=== PATIENT | female | born 1975 | race Caucasian/White ===

== ENCOUNTER → 2017-12-15 | Outpatient (CLI) | payer OTHER ==
[~2017-12-15] MED LIST: ALPRAZOLAM0.5 M2 PO; AMBIEN 5 MG TABL5 M1 PO; AMITRIPTYLINE H25 M2 PO; AMITRIPTYLINE H75 M1 PO; AMITRIPTYLINE100 MG PO; ATIVAN1 MG PO; BENTYL 20 MG TA20 M1 PO; BOOST237 M1 PO; CARISOPRODOL 3350 MG PO; CHANTIX0.5 MG PO; CHANTIX1 MG PO; CLOMIPRAMINE HC50 M1 PO; CLONAZEPAM 0.50.5 M1 PO; CYMBALTA20 MG; ELIQUIS2.5 MG PO; EXCEDRIN CAPLE1 EACH PO; GOLYTELY4000 M1 PO; HYDROCODON-ACE1 EAC7 PO; HYDROCODONE-AP1 EAC6 PO; HYDROXYZINE HCL50 MG PO; IBUPROFEN 800800 M1 PO; IMITREX 50 MG T50 MG PO; KLONOPIN1 MG PO; LEVOTHYROXINE0.05 MG PO; LINZESS145 MCG PO; LIORESAL 10 MG10 MG PO; LYRICA 50 MG50 MG PO; MEDROLDOSEPACK PO; MIRALAX17 GM PO; MOBIC15 MG PO; NEURONTIN 300300 M1 PO; NICOTINE TRANSD21 M1 TRANSDERM; NORCO 5-325 TA1 EAC1 PO; NORCO 5-325 TA1 EACH PO; NORFLEX100 MG PO; OMEPRAZOLE20 M2 PO; ONDANSETRON HCL4 M2 PO; PERCOCET PO; PHENERGAN 25 MG25 M1 PO; PHENERGAN 25 MG25 MG PO; PHENERGAN12.5 M2 RECTAL; PRENATAL PO; PROMS25 WY RECTAL; PROTONIX40 M1 PO; REMERON15 MG PO; SYNTHROID50 MCG PO; TEGRETOL XR200 MG PO; TOPAMAX 25 MG T25 M1 PO; TOPROL XL25 MG PO; TORADOL 10 MG T10 MG PO; TRAMADOL 50 MG50 MG PO; TRAZODONE 150150 M1; TRAZODONE 150150 M1 PO; TRAZODONE HCL100 MG PO; VALACYCLOVIR1000 MG PO; VALIUM5 MG PO; VENLAFAXINE HCL75 M1 PO; VISTARIL 25 MG25 M1 PO; XANAX 0.5 MG0.5 MG PO; ZOFRAN ODT4 MG SUBLING
== END ==
LOC: M.MRI 08:39
DX: M47.894 Other spondylosis, thoracic region (principal); M50.221 Other cervical disc displacement at C4-C5 level; M50.223 Other cervical disc displacement at C6-C7 level

== ENCOUNTER → 2018-01-11 | Outpatient (CLI) | payer OTHER ==
--- NOTE | ~2018-01-11 | EKG ---
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
--- NOTE | 2018-01-19 14:40 | PAINCON ---
[address] [address] PAIN MANAGEMENT CONSULTATION Name: ALLENALTAF Sarah [facility] [id number] Admission: 01/11/18 Attend Phys: Ricco Farmer MD Discharge: Date of : 79 Report #: [id number] THIS REPORT FOR: //name// CC: Ricco Farmer NO PCP Workmen's Compensation DATE OF SERVICE: 01/11/2018 FOLLOWUP HISTORY: The patient is a 42-year-old female. 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 She hurt her back while lifting the patient. She was assisting the patient. The patient weighed over 400 pounds. After she assisted she notes some pain and discomfort in the low back area. She also has had pain and discomfort up in the neck and mid back area. She underwent trigger point injections at the last visit. She notes that the pain up in the trapezius muscles, has improved. Continues to have pain and discomfort in the rhomboid area in the middle portion of her back. She has not had any complications from the procedure. There were no problems with shortness of breath. At this juncture, she would like to proceed with another injection for the mid back pain. She feels that Meloxicam is helpful. She has not been taking Soma and feels that the hydrocodone 5/325 can be helpful. She rarely takes this medication. She notes that her pain becomes more problematic when she is using her arms. Driving is somewhat problematic. Activities where she lifts and bend can be problematic as well. She finds heat, cold, rest and medications are helpful. ALLERGIES: CONTRAST DYE CAUSES A RASH, COMPAZINE. PAIN CLINIC ASSESSMENT. 1. The patient is not being treated for osteoarthritis or rheumatoid arthritis. 2. Height 5 feet 7 inches, weight 152 pounds, BMI is 23. 3. Vital signs: Blood pressure 107/75, heart rate 94, respiratory rate 16, room air saturation is 99%, temperature 98.2. 4. Fall. The patient has not fallen in the last 3 months. She is not a fall risk. 5. Blood thinners. The patient is not on a blood thinner. 6. Hypertension. The patient is not being treated for hypertension. 7. Opioid greater than 6 weeks. The patient has not been on opioids for greater than 6 weeks, but she is taking [place] 5 mg p.r.n. 8. Functional assessment tool. 9. Risk assessment tool. Pain impact scores 37/70 in regards to general activity, mood, walking ability, work, relationships with others and sleep as well as enjoyment of life. 10. Recreational drug use. The patient denies. 11. Tobacco: The patient denies. 12. Alcohol: [place] [address] PAIN MANAGEMENT CONSULTATION Name: ALTAF VILLA Room: [facility]#: [id number] Admission: 01/11/18 Attend Phys: Ricco Farmer MD Discharge: Date of : 79 Report #: [id number] PHYSICAL EXAMINATION: GENERAL: The patient is a well-developed, well-nourished white female. She appears her stated age. She is alert and oriented x 3. Her affect seems appropriate. HEENT: Normocephalic, atraumatic. Extraocular muscles intact. Hearing is within normal limits. No nasal complaints. Buccal membranes are moist. NECK: Evidence of a well-healed scar in the neck area. No bruits are heard. Neck range of motion is within normal limits for flexion, extension, rotation, left and right as well as lateral bending. The patient does still have some soreness to palpation in the rhomboid areas of her left and right back area. Notes some discomfort in the area of the levator scapulae muscles. Muscle strength in the upper extremity is still judged to be 5/5 for the major muscle groups. Deep tendon reflexes +2 bilaterally, triceps and brachial radialis within normal limits. CHEST: Clear to auscultation. HEART: Regular rate. ABDOMEN: Nontender. IMPRESSION: 1. Neck and shoulder pain/myofascial. 2. History of tumor in the neck. 3. History of radiation to the neck. 4. Depression. 5. Anxiety. 6. Insomnia. 7. Cervical cancer. 8. History of migraine headaches. RECOMMENDATIONS: We discussed treatment options with the patient. She did note benefit from the trigger point injection at the last visit. They are less problematic. Still has some increased pain and discomfort with ranging of motion of her arms. Palpation in the area of the levator scapula as well as the rhomboid areas are both tender to palpation. We discussed the treatment option. The patient does continue to have trigger points. We again discussed the option with the patient. Possible complication of the procedure or infection, increased muscle soreness, no improvement in pain as well as pneumothorax. The patient felt that the pain relief that she had gleaned from the upper trapezius areas were beneficial and would like to proceed with trigger point injections to the rhomboid areas and the area of the levator scapulae on the left and on the right. PROCEDURE NOTE: The patient was placed in the sitting position. Her back was sterilely prepped with a chlorhexidine solution. Trigger points were noted in the rhomboid area on the left as well as the levator scapula. The levator scapular muscle was then palpated. Trigger point was noted. A total of 5 mL of [facility] [address] [place] [address] PAIN MANAGEMENT CONSULTATION Name: ALTAF VILLA Room: [facility]#: [id number] Admission: 01/11/18 Attend Phys: Ricco Farmer MD Discharge: Date of : 79 Report #: [id number] 0.5% bupivacaine and 20 mg triamcinolone was injected into this area. The rhomboid area was then palpated. A trigger point was noted. A total of 5 mL of 0.5% bupivacaine was injected. The right side was treated in the like fashion. The rhomboid area was palpated. The trigger point was noted. A 25-gauge needle was then advanced into the area. There were no bubbles on aspiration. A total of 10 mL of 0.5% bupivacaine was injected. The levator scapular area was then palpated. A total of 10 mL of 0.5% bupivacaine and 20 mg triamcinolone was injected into this area. The patient tolerated the procedure well. There were no complications. She remained in the pain clinic for an appropriate amount of time. Her pain score was decreased from 4 to 0 at the time of discharge. She will follow up in the future as needed. We would like to thank you for letting us participate in her care. We hope she continues to improve. <ELECTRONICALLY SIGNED> By: Ricco Farmer MD 01/19/18 1440 1330 2356N. Emmanuel Farmer MD /[facility]
== END | disposition home or self-care (01) ==
LOC: M.PC 02:46
DX: M79.1 Myalgia (principal); F32.9 Major depressive disorder, single episode, unspecified; F41.9 Anxiety disorder, unspecified; G43.909 Migraine, unspecified, not intractable, without status migrainosus; C53.9 Malignant neoplasm of cervix uteri, unspecified; I10 Essential (primary) hypertension; Z88.8 Allergy status to other drugs, medicaments and biological substances

== ENCOUNTER 2018-01-26 21:12 | Emergency (ER) | payer MEDICAID ==
[~2018-01-26] VITALS: Ht 170.2 cm; Wt 65.8 kg
[~2018-01-26 21:12] MED LIST changes: -AMITRIPTYLINE H25 M2 PO; -AMITRIPTYLINE H75 M1 PO; -AMITRIPTYLINE100 MG PO; -ATIVAN1 MG PO; -CHANTIX1 MG PO; -CYMBALTA20 MG; -ELIQUIS2.5 MG PO; -EXCEDRIN CAPLE1 EACH PO; -HYDROCODON-ACE1 EAC7 PO; -IMITREX 50 MG T50 MG PO; -NEURONTIN 300300 M1 PO; -PHENERGAN12.5 M2 RECTAL; -PRENATAL PO; -PROTONIX40 M1 PO; -SYNTHROID50 MCG PO; -TOPROL XL25 MG PO; -TRAZODONE 150150 M1; -VALACYCLOVIR1000 MG PO; -VENLAFAXINE HCL75 M1 PO; -XANAX 0.5 MG0.5 MG PO; -ZOFRAN ODT4 MG SUBLING
[2018-01-26] MEDS ORDERED: CYMBALTA20 MG (21:30)
[2018-01-26] MEDS ORDERED: TRAZODONE 150150 M1 (21:30)
[2018-01-26 21:37] LABS: ABSOLUTE BASOPHILS 0.1 thou/uL (0.0-0.2); ABSOLUTE EOSINOPHILS 0.1 thou/uL (0.0-0.7); ABSOLUTE LYMPHOCYTES 2.6 thou/uL (0.8-5.3); ABSOLUTE MONOCYTES 0.7 thou/uL (0.0-1.2); ABSOLUTE NEUTROPHILS 7.5 thou/uL (1.6-8.1); BASOPHILS 0.5 %; EOSINOPHILS 1.3 %; HEMATOCRIT 40.5 % (37.0-47.0); HEMOGLOBIN 13.7 gm/dL (12.0-15.0); LYMPHOCYTES 23.8 %; MCH 30.3 pg (26.0-34.0); MCHC 33.7 g/dL (28.0-37.0); MONOCYTES 6.5 %; MPV 6.8 fl. (7.2-11.1); NUCLEATED RBCS 0 /100WBC; PLATELET COUNT* 322 thou/uL (150-400); POLYS 67.9 %; RDW-CV 15.9 % (10.5-14.5)
[2018-01-26 21:41] LABS: URINE BILIRUBIN NEGATIVE (Negative); URINE BLOOD NEGATIVE (Negative); URINE CLARITY CLEAR; URINE COLOR YELLOW; URINE GLUCOSE-RANDOM NEGATIVE (Negative); URINE KETONES NEGATIVE (Negative); URINE LEUKOCYTES-REFLEX NEGATIVE (Negative); URINE NITRITE-REFLEX NEGATIVE (Negative); URINE PROTEIN NEGATIVE (Negative); URINE SPECIFIC GRAVITY >= 1.030 (1.005-1.030); URINE UROBILINOGEN 0.2 E.U./dl (0.2-1.0)
[2018-01-26 21:47] LABS: CALCIUM 8.7 mg/dL (8.5-10.1); CREATININE 0.9 mg/dL (0.6-1.3); POTASSIUM 3.4 mmol/L (3.5-5.1)
[2018-01-26 21:51] LABS: ALBUMIN 3.2 g/dL (3.4-5.0); TOTAL BILIRUBIN 0.1 mg/dL (<0.1-1.0); TOTAL PROTEIN 7.1 g/dL (6.4-8.2)
[2018-01-26] MEDS ORDERED: NORCO 5-325 TA1 EACH PO (22:52)
[2018-01-26] MEDS ORDERED: ZOFRAN ODT4 MG SUBLING (22:52)
[2018-01-26 22:59] VITALS: BP 116/73
[2018-02-01] MEDS ORDERED: AMITRIPTYLINE H75 M1 PO (10:46)
[2018-02-01] MEDS ORDERED: LIORESAL 10 MG10 MG PO (10:46)
[2018-02-01] MEDS ORDERED: MEDROLDOSEPACK PO (10:46)
[2018-02-01] MEDS ORDERED: NORCO 5-325 TA1 EACH PO (10:46)
[2018-02-10] MEDS ORDERED: NORCO 5-325 TA1 EACH PO (13:08)
[2018-03-17] MEDS ORDERED: AMITRIPTYLINE100 MG PO (13:28)
[2018-03-17] MEDS ORDERED: VALIUM5 MG PO (13:28)
[2018-03-17] MEDS ORDERED: LIORESAL 10 MG10 MG PO (13:28)
[2018-03-17] MEDS ORDERED: HYDROCODON-ACE1 EAC7 PO (13:29)
[2018-04-14] MEDS ORDERED: NORCO 5-325 TA1 EACH PO (08:41)
[2018-04-14] MEDS ORDERED: HYDROCODON-ACE1 EAC7 PO (08:41)
[2018-04-14] MEDS ORDERED: ZOFRAN ODT4 MG SUBLING (08:41)
[2018-04-14] MEDS ORDERED: VALIUM5 MG PO (08:41)
[2018-04-14] MEDS ORDERED: AMITRIPTYLINE100 MG PO ×3 (08:41→10:59)
[2018-04-14] MEDS ORDERED: LIORESAL 10 MG10 MG PO ×2 (08:41→10:56)
[2018-04-14] MEDS ORDERED: AMITRIPTYLINE H25 M2 PO (10:55)
[2018-04-15] MEDS ORDERED: SYNTHROID50 MCG PO (11:18)
[2018-04-15] MEDS ORDERED: PHENERGAN12.5 M2 RECTAL (11:19)
[2018-06-21] MEDS ORDERED: LIORESAL 10 MG10 MG PO (13:15)
[2018-06-21] MEDS ORDERED: AMITRIPTYLINE H25 M2 PO (13:15)
[2018-06-21] MEDS ORDERED: HYDROCODON-ACE1 EAC7 PO (13:15)
[2018-06-21] MEDS ORDERED: AMITRIPTYLINE100 MG PO (13:15)
[2018-06-21] MEDS ORDERED: NORCO 5-325 TA1 EACH PO (13:15)
[2018-07-19] MEDS ORDERED: NORCO 5-325 TA1 EACH PO (11:43)
[2018-07-19] MEDS ORDERED: AMITRIPTYLINE H25 M2 PO (11:43)
[2018-07-19] MEDS ORDERED: HYDROCODON-ACE1 EAC7 PO ×2 (11:43→11:46)
[2018-07-19] MEDS ORDERED: AMITRIPTYLINE100 MG PO (11:43)
[2018-07-19] MEDS ORDERED: LIORESAL 10 MG10 MG PO (11:43)
[2018-07-19] MEDS ORDERED: CHANTIX1 MG PO (13:37)
[2018-07-19] MEDS ORDERED: PROTONIX40 M1 PO (13:37)
== END 2018-01-26 22:59 | disposition home or self-care (01) ==
LOC: M.ERS 21:12
PROVIDERS: Family Medicine
DX: R10.9 Unspecified abdominal pain (principal); G43.909 Migraine, unspecified, not intractable, without status migrainosus; F17.210 Nicotine dependence, cigarettes, uncomplicated; Z85.41 Personal history of malignant neoplasm of cervix uteri; Z88.5 Allergy status to narcotic agent; Z88.8 Allergy status to other drugs, medicaments and biological substances

== ENCOUNTER → 2018-02-01 | Outpatient (CLI) | payer OTHER ==
[~2018-02-01] MED LIST changes: +AMITRIPTYLINE H25 M2 PO; +AMITRIPTYLINE H75 M1 PO; +AMITRIPTYLINE100 MG PO; +ATIVAN1 MG PO; +CHANTIX1 MG PO; +CYMBALTA20 MG; +ELIQUIS2.5 MG PO; +EXCEDRIN CAPLE1 EACH PO; +HYDROCODON-ACE1 EAC7 PO; +IMITREX 50 MG T50 MG PO; +NEURONTIN 300300 M1 PO; +PHENERGAN12.5 M2 RECTAL; +PRENATAL PO; +PROTONIX40 M1 PO; +SYNTHROID50 MCG PO; +TOPROL XL25 MG PO; +TRAZODONE 150150 M1; +VALACYCLOVIR1000 MG PO; +VENLAFAXINE HCL75 M1 PO; +XANAX 0.5 MG0.5 MG PO; +ZOFRAN ODT4 MG SUBLING
--- NOTE | 2018-02-22 08:16 | PAINCON ---
[address] [address] PAIN MANAGEMENT CONSULTATION Name: ALLENALTAF Sarah [id number] Admission: 02/01/18 Attend Phys: Ricco Farmer MD Discharge: Date of : 79 Report #: [id number] THIS REPORT FOR: //name// CC: Ricco Farmer NO PCP ____ ____ DATE OF SERVICE: 02/01/2018 FOLLOWUP HISTORY: The patient is a 42-year-old female who has been seen in the Pain Clinic. She suffers from myofascial pain. She works at [employer]. She was hurt while lifting a patient. States that once the patient who weight of about 400 pounds started to fall, she tried to assist her. After that, she noted worsening of pain and discomfort in her shoulders, neck as well as in the mid back area. She notes increased stiffness in her neck, arms mid back area. Sleep is problematic. She notes problems with activities of daily living. She notes decreased range of motion in the arms and shoulder area secondary to pain. States that she sometimes takes medications of hydrocodone to help, but feels that the benefit is somewhat limited. Driving can be problematic. Activities where she bends lifts are problematic as well. She has been off work because of the limited physical ability. She is noting some increased pain and discomfort. After the initial trigger points, she noticed her pain improved, but has noted an escalation in pain at this juncture. Pain has risen to the level of an 8/10. Notes increased muscle stiffness. Also, has had some problems with migraine headaches. ALLERGIES: CONTRAST DYE CAUSED A RASH. MEDICATIONS: Compazine renewal. Review of current pain medications, Baclofen 10 mg 1 p.o. t.i.d., [place] 5/325 one p.o. q. 6 hours p.r.n. pain, Meloxicam 15 mg daily, amitriptyline 75 mg at bedtime, Cymbalta 20 mg daily, ondansetron 4 mg q. 8 hours p.r.n. nausea and vomiting, trazodone 75 mg at bedtime. PAIN CLINIC ASSESSMENT: 1. The patient is not being treated for osteoarthritis or rheumatoid arthritis. 2. Height 5 feet 7 inches, weight 149 pounds, BMI is 23. 3. Vital signs: Blood pressure 133/76, pulse is 92, respiratory rate 16, room air saturation 99, temperature 98.1. 4. Fall. The patient has not fallen in the last 3 months. 5. Blood thinners. The patient is not on a blood thinner. 6. Hypertension. The patient is not being treated for hypertension. 7. Opioid greater than 6 weeks. The patient has not been taking opioids greater than 6 weeks. 8. Functional assessment tool. 9. Risk assessment tool. The patient's impact scores 37/70 showing some impact on activity, mood, walking ability, work, relationships with others, sleep and [facility] [address] [place] [address] PAIN MANAGEMENT CONSULTATION Name: ALTAF VILLA Room: [facility]#: [id number] Admission: 02/01/18 Attend Phys: Ricco Farmer MD Discharge: Date of : 79 Report #: [id number] enjoyment of life. 10. Recreational drug use. Denies use of recreational drugs. 11. Tobacco: The patient denies use of tobacco, alcohol. The patient denies use of alcoholic beverages. PHYSICAL EXAMINATION: GENERAL: The patient is a well-developed, well-nourished female. She appears her stated age. She is alert and oriented x 3. Her affect appears appropriate.' HEENT: Normocephalic and atraumatic. Extraocular eye muscles intact. Hearing is within normal limits. Sclerae is not icteric. Membranes are moist. NECK: Has a well-healed scar in the neck area. No bruits or adenopathy. Some limited range of motion secondary to increased pain and discomfort with left lateral bending, right lateral bending, left lateral rotation, cervical extension and cervical flexion. The patient has pain and discomfort in the area of the rhomboids on the left and right. Also, has pain in the area of the trapezius on the left and right side. Muscle strength in the upper extremity is judged to be 5/5 in the major muscle groups. Deep tendon reflexes +2 bilaterally for triceps, brachioradialis. CHEST: Clear to auscultation without rales or rhonchi. HEART: Regular rate, normal S1, S2. ABDOMEN: Nontender. Lower extremity muscle strength 5/5 with no complaints of neurological changes in the lower extremities. IMPRESSION: 1. Neck and shoulder/myofascial pain. 2. History of tumor in the neck. 3. History of radiation to the neck. 4. Depression. 5. Anxiety. 6. Insomnia. 7. Cervical cancer. 8. History of migraine headaches. RECOMMENDATIONS: We discussed treatment options with the patient. At this juncture, we will petition her insurance for a repeat of the trigger point injections. We will provide her with a Medrol Dosepak to take in the interim. We will also give her hydrocodone 5/325 to take p.r.n. for the problematic neck pain. A script for amitriptyline 75 mg has been written. The patient will also continue with baclofen as an option 1 p.o. t.i.d. to help with the muscle spasms. She will call us if she has any problems with her medications. She [facility] [address] [place] [address] PAIN MANAGEMENT CONSULTATION Name: ALTAF VILLA Room: [facility]#: [id number] Admission: 02/01/18 Attend Phys: Ricco Farmer MD Discharge: Date of : 79 Report #: [id number] will follow up in the near future, at which time we will consider trigger point injections to the affected areas. <ELECTRONICALLY SIGNED> By: Ricco Farmer MD 02/22/18 0816 1322 2044N. Emmanuel Farmer MD /[facility]
== END ==
LOC: M.PC 03:02
DX: M79.1 Myalgia (principal); F41.9 Anxiety disorder, unspecified; F32.9 Major depressive disorder, single episode, unspecified; G47.00 Insomnia, unspecified; G43.909 Migraine, unspecified, not intractable, without status migrainosus; Z92.3 Personal history of irradiation; C53.9 Malignant neoplasm of cervix uteri, unspecified; Z85.828 Personal history of other malignant neoplasm of skin

== ENCOUNTER → 2018-02-10 | Outpatient (CLI) | payer OTHER ==
--- NOTE | 2018-02-22 08:16 | PAINCON ---
[address] [address] PAIN MANAGEMENT CONSULTATION Name: ALTAF VILLA [id number] Admission: 02/10/18 Attend Phys: Ricco Farmer MD Discharge: Date of : 79 Report #: [id number] THIS REPORT FOR: //name// CC: Reese Farmer workmen's compensation DATE OF SERVICE: 02/10/2018 FOLLOWUP COMPLAINT: "Pain improved a little bit after the Medrol Dosepak, but still is painful and I am having pain down in my neck and shoulders. Left side is worse than the right. Pain is not as tight as it was prior to the Medrol Dosepak, but still some problem. I would like to return to work in the next week. Pain is rated as a 5/10. Had no new complications. No new trauma. Overall, things are getting a little bit better." FOLLOWUP HISTORY: The patient is a 42-year-old female who has been seen in the pain clinic. 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 While lifting a patient of approximately 400 pounds, the patient needed assistance. She helped with the patient. After lifting and assisting the patient. She noted pain and discomfort in her neck, low back and mid back areas. She has been having pain and discomfort with muscle spasms and weakness/increased pain with activities of daily living. Pain is so problematic that she has been unable to work for the last few weeks. She feels that things overall are improving. She would like to undergo a trigger point injection today. Her desire is to return to work next week. She feels that the meloxicam and other medications in conjunction with hydrocodone are helpful. She continues to have pain and discomfort in the left trapezius, right trapezius, and in the mid back on both sides. She had no complication from the trigger point injection in the past and would like to proceed with another injection to the affected sites today. ALLERGIES: 1. CONTRAST DYE causes a rash. 2. COMPAZINE. MEDICATIONS: They include: 1. Amitriptyline 75 mg 1 p.o. at bedtime. 2. Baclofen 10 mg 1 p.o. t.i.d. for muscle spasms. 3. Cymbalta 20 mg p.o. b.i.d. 4. Badger 5/325 one p.o. q. 4 hours p.r.n. pain. 5. Medrol Dosepak was taken leg at the last visit. 6. Ondansetron 4 mg p.r.n. for nausea. 7. Trazodone 150 mg daily. PAIN CLINIC ASSESSMENT: 1. The patient is not being treated for osteoarthritis [place] [address] PAIN MANAGEMENT CONSULTATION Name: ALTAF VILLA Room: [facility]#: [id number] Admission: 02/10/18 Attend Phys: Ricco Farmer MD Discharge: Date of : 79 Report #: [id number] 2. Fall: The patient has not fallen in the last 3 months. 3. Blood thinner. The patient is not on a blood thinner. 4. Hypertension. The patient is not being treated for hypertension. 5. Opioid use greater than 6 weeks. The patient has not been using opioids for greater than 6 weeks. 5. Functional assessment tool. 6. Risk assessment tool. The patient's impact scores is 37/70, this indicates some significant impairment in her activities of daily living, mood, walking ability, work, relationship with others as well as sleep and enjoyment of life. 7. Recreational drug use. The patient denies recreational drug use. 8. Tobacco: The patient denies use of tobacco. 9. Alcohol: The patient denies use of alcoholic beverages. PHYSICAL EXAMINATION: VITAL SIGNS: Height 5 feet 7 inches, weight 153 pounds, BMI is 24. Blood pressure 104/71, heart rate 100, respiratory rate 16, room air saturation 97%, temperature 98.1. GENERAL: The patient is a well-developed, well-nourished white female. She appears her stated age. She is alert and oriented x 3. Her affect appears appropriate. She does seem of somewhat sad. HEENT: Normocephalic, atraumatic. Extraocular eye muscles intact. Nonicteric sclerae. Hearing within normal limits. Mucous membranes are moist. NECK: Without JVD or adenopathy. The patient has evidence of a well-healed scar in the anterior portion of her neck. Cervical neck movement with flexion, extension and rotation. Left and lateral bending shows some decreased secondary to the patient complains of stiffness and some discomfort in the area. The patient has pain and discomfort to palpation of the rhomboids on the left and right, as well as in the trapezius muscles on the left and right. Rates her pain as about an 8 in these areas. Muscle strength in the upper extremity judged to be 5/5. The patient is moving slow and states that her muscles in these areas are sore. CHEST: Clear to auscultation without rales or cough. HEART: Regular rate and rhythm, normal S1, S2. ABDOMEN: Nontender. EXTREMITIES: Lower extremity muscle group strength 5/5 with no complaints of neurological change the muscle symmetry is present. IMPRESSION: 1. Neck and shoulder pain/myofascial pain. 2. History of tumor in the neck. 3. History of radiation to the neck. 4. Depression. 5. Anxiety. 6. Insomnia. 7. Cervical cancer. 8. [place] [address] PAIN MANAGEMENT CONSULTATION Name: ALLEN,ALTAF Sarah Room: [facility] Rojelio#: [id number] Admission: 02/10/18 Attend Phys: Ricco Farmer MD Discharge: Date of : 79 Report #: [id number] RECOMMENDATIONS: We discussed treatment options with the patient. At this juncture, the patient will undergo trigger point injections to the affected areas again. She continues to have pain and discomfort in the left and right trapezius area. There is pain in the area of the rhomboids on the posterior portion of her back near the scapula bilaterally. Movement in her arms can exacerbate the pain and discomfort in these areas. Overall, she feels that the pain is still problematic 8/10 and has improved in the past with trigger point injection and would like to proceed with an injection to the affected area. We discussed the treatment options. Risks and benefits of trigger point injections were again discussed. Possible complications of the procedure, which could include but are not limited to infection, increased muscle soreness, increased pain, no improvement in pain, pneumothorax with a chest tube placement being needed with hospitalization was discussed. The patient elects to proceed. PROCEDURE NOTE: The patient was placed in the sitting position. Her neck and shoulder areas were sterilely prepped with a chlorhexidine solution. The rhomboid area on the left and right were sterilely prepped. A 25-gauge needle was then advanced into the left trapezius area. After appropriate movement of needle. The trigger point was elicited. Total of 10 mL of 0.5% bupivacaine and 40 mg triamcinolone was injected. The patient tolerated the procedure well. The right trapezius area was then sterilely prepped and the trigger point was identified. Using a 25-gauge needle. A total of T10 mL of 0.5% bupivacaine was injected. A total of 40 mg Depo-Medrol plus with 10 mL of 0.5% bupivacaine was injected. The patient tolerated the procedure well. The third trigger point in the left rhomboid area was identified. A 25-gauge needle was then advanced into this area. A total of 5 mL of 0.5% bupivacaine and 20 mg Depo-Medrol was injected. The right rhomboid area was noted. Trigger point was identified. A 25-gauge needle was then advanced into the area of the trigger point. A total of 5 mL of 0.5% bupivacaine and 20 mg Depo-Medrol was injected. The patient tolerated the procedure well. There were no complications. A Band-Aid was placed in the appropriate places. The patient remained for an appropriate amount of time. She was provided a prescription of hydrocodone 5 mg tablets to take q 6-8 hours p.r.n. for pain. The patient states that she is going to try to go to work on Wednesday. Hopefully, she has successful time. She will lift and move in cognizant of her limitations. We would like to thank you for letting us participate in her care. We hope she continues to improve. <ELECTRONICALLY SIGNED> By: Ricco Farmer MD 02/22/18 0816 1335 2027N. Emmanuel Farmer MD /[facility]
== END | disposition home or self-care (01) ==
LOC: M.PC 01:29
DX: M79.1 Myalgia (principal); G43.909 Migraine, unspecified, not intractable, without status migrainosus; F32.9 Major depressive disorder, single episode, unspecified; F41.9 Anxiety disorder, unspecified; Z98.890 Other specified postprocedural states; Z91.041 Radiographic dye allergy status; Z88.8 Allergy status to other drugs, medicaments and biological substances; Z79.891 Long term (current) use of opiate analgesic; Z86.73 Personal history of transient ischemic attack (TIA), and cerebral infarction without residual deficits

== ENCOUNTER → 2018-03-17 | Outpatient (CLI) | payer OTHER ==
--- NOTE | 2018-04-13 13:42 | PAINCON ---
[address] [address] PAIN MANAGEMENT CONSULTATION Name: ALTAF VILLA [id number] Admission: 03/17/18 Attend Phys: Ricco Farmer MD Discharge: Date of : 79 Report #: [id number] THIS REPORT FOR: //name// CC: Reese Farmer Workmen[employer] Compensation DATE OF SERVICE: 03/17/2018 CHIEF COMPLAINT: "Pain has gotten worse. I am having trouble with my upper back and middle back area." FOLLOWUP HISTORY: The patient is a 42-year-old female who has been followed in the pain clinic. 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 She has had pain and discomfort, which has continued to be quite problematic. Notes that there is an increased muscle spasm in the upper portion of her back. There is pain and discomfort in the neck area. Difficulty with most activities of daily living. States that she has tried to use the exercise; that have been provided for her in the past. She still feels that her pain is still quite problematic. She continues with meloxicam and hydrocodone. It was felt that the trigger point injections have been beneficial, but then she continues to note a worsening of the pain after a few days postinjection. She states that most of her time or significant amount of time at this juncture is resting secondary to worsening of the pain with activity. Denies any new injury. Denies any problems with her medications. ALLERGIES: 1. CONTRAST DYE CAUSES A RASH. 2. COMPAZINE. MEDICATIONS: 1. Amitriptyline 75 mg at bedtime. 2. Baclofen 10 mg t.i.d., muscle spasm. 3. Cymbalta 20 mg b.i.d. 4. [place] 5/325 p.r.n. 5. Zofran for nausea. 5. Trazodone 150 mg at bedtime. PAIN CLINIC ASSESSMENT: 1. The patient is not being treated for rheumatoid arthritis or osteoarthritis. 2. Weight 153 pounds. BMI is 23. 3. Vital signs: Blood pressure 110/70, heart rate 99, respiratory rate is 18, room air saturation 99%, temperature 98.4. 4. Fall. The patient has not fallen in the last 3 months. 5. Blood thinner. The patient is not on a [place] [address] PAIN MANAGEMENT CONSULTATION Name: ALTAF VILLA Room: [facility]#: [id number] Admission: 03/17/18 Attend Phys: Ricco Farmer MD Discharge: Date of : 79 Report #: [id number] 6. Hypertension. The patient is not being treated for hypertension. 7. Opioid use greater than 6 weeks. The patient has not on any opioid regimen for greater than 6 weeks. 8. Functional assessment tool. 9. Risk assessment tool. Pain impact scores is 37/70, indicating moderate amount of problems with activities of daily living involving mood, walking, relationships with others, inability to sleep and having difficulty with enjoyment of life. 10. Recreational drug use. Denies use of recreational drugs. 11. Tobacco. Denies use of tobacco. 12. Alcohol. Denies use of alcoholic beverages. PHYSICAL EXAMINATION: GENERAL: The patient is a well-developed, well-nourished white female. She appears her stated age. She is alert and oriented x 3. She seems depressed. Speech is slow and seems somewhat depressed. HEENT: Normocephalic, atraumatic. Extraocular eye muscles intact. Hearing is within normal limits. Sclerae nonicteric. Mucous membranes are moist. NECK: Without bruits or adenopathy. Well healed scar in the neck. The patient has some pain and discomfort in the posterior neck area as well as some discomfort in the area of occipitals. She has pain and discomfort in the area of the rhomboids. Palpation of the left and right trapezius are problematic, left much more so than the right. Midline palpation from T1 through T7 is to be quite problematic and painful. Palpation in the paraspinous muscles at these areas, both increase the patient's pain and discomfort level. She vocalizes with palpation along the left lateral area. Pain and discomfort, soreness is noted in the levator scapular areas bilaterally, left more so than right. Major muscle group strength is judged to be 4+/5 secondary to the patient giving way because of pain and discomfort during the examination. CHEST: Clear to auscultation without rales or rhonchi. HEART: Regular rate. S1, S2. ABDOMEN: Nontender. MUSCULOSKELETAL: Without significant kyphosis, lordosis or scoliosis. Lower extremity muscle strength is 5/5 for the major muscle groups of the lower extremity without sensory changes. IMPRESSION: 1. Continued myofascial pain involving the neck, shoulders, and worsening of pain and discomfort in the mid thoracic area. 2. History of tumor in the neck. 3. History radiation to the neck. 4. Depression. 5. Anxiety. 6. Insomnia. 7. Cervical cancer. 8. History of migraine headaches. [address] [place] [address] PAIN MANAGEMENT CONSULTATION Name: ALTAF VILLA [facility]#: [id number] Admission: 03/17/18 Attend Phys: Ricco Farmer MD Discharge: Date of : 79 Report #: [id number] RECOMMENDATIONS: We discussed treatment options with the patient. They include continuation of her current medications. She feels that she is still sleeping poorly. Until that the Elavil is helpful. She is at 75 mg of amitriptyline. We will increase this to 100 mg at bedtime. The patient also is having some muscles spasms. We will provide the patient with Valium 5 mg p.o. b.i.d. to help with the muscle spasms. We will also continue with hydrocodone 5 mg 1 p.o. every 4-6 hours p.r.n. pain. We discussed stretching options for the patient. We have provided her exercise, which will probably be more beneficial. We went through these with her. She did note some improvement with that. The patient is walking in a very structured manner. She is not moving and portrays a significant amount of upper body rigidity. We explained to her that she should and needs to continue to walk in a more normal fashion to help decrease the muscle spasms. She has been given a script for diazepam 1 p.o. b.i.d., total of 10 tablets, hydrocodone 45 tablets 5/325, as well as increase in Elavil to 100 mg per day and a renewal also for baclofen 10 mg 1 or 2 tablets p.o. t.i.d. We would like to thank you for letting us participate in her care. We hope she continues to improve. <ELECTRONICALLY SIGNED> By: Ricco Farmer MD 04/13/18 1342 0827 0016N. Emmanuel Farmer MD /nt
== END ==
LOC: M.PC 04:04
DX: M79.1 Myalgia (principal); M54.2 Cervicalgia; M25.512 Pain in left shoulder; M25.511 Pain in right shoulder; C76.0 Malignant neoplasm of head, face and neck; F32.9 Major depressive disorder, single episode, unspecified; F41.9 Anxiety disorder, unspecified; G47.00 Insomnia, unspecified

== ENCOUNTER → 2018-04-14 | Outpatient (CLI) | payer OTHER ==
--- NOTE | 2018-04-20 13:42 | PAINCON ---
[address] [address] PAIN MANAGEMENT CONSULTATION Name: ALTAF VILLA [facility] [id number] Admission: 04/14/18 Attend Phys: Ricco Farmer MD Discharge: Date of : 79 Report #: [id number] THIS REPORT FOR: //name// CC: Reese Farmer DATE OF SERVICE: 04/14/2018 FOLLOWUP COMPLAINT: "Still having lots of soreness in my back. I have been stretching like you show me." FOLLOWUP HISTORY: The patient is a 42-year-old female who has been seen in the pain clinic because of chronic pain. 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 Continues to have pain and discomfort. States that she was helping to lift a 400-pound patient. At that point, the patient started to fall. Since that episode, she has had pain and discomfort in her neck, upper back, and lower back. She states that she continues to do stretching exercises. Notes that the trigger point injections in her shoulder and mid back have been helpful in the past. Still has some limited range of motion because of chronic pain and discomfort. Overall, she feels that things have improved since she first came to the pain clinic. She feels that medications are helpful. She has had some "shocking sensation down her feet with some tingling in the plantar portion of her foot, left and right. Notes that this has become more problematic. The duration of the pain and discomfort usually is about a minute and a half to 2 minutes. Has had no problems with the amitriptyline does find that this medication is helpful. Has had no problems with the hydrocodone with confusion. The patient did fine Valium, helpful with muscle spasms. Pain is about 50% relief with the current medical regimen. Has noted some benefit from heat as well as cold. Has taken Epsom salt baths. ALLERGIES: CONTRAST DYE CAUSES RASH, COMPAZINE. MEDICATIONS: 1. Amitriptyline 100 mg at bedtime. 2. Baclofen, total of 60 mg a day, 20 mg t.i.d. for muscle spasms. 3. Cymbalta 20 mg b.i.d. 4. [place] 5/325 one p.o. q. 6 hours p.r.n. pain. The patient does not take these medications daily, Zofran for nausea, trazodone 150 mg at bedtime. PAIN CLINIC ASSESSMENT: 1. The patient is not being treated for rheumatoid arthritis or osteoarthritis. 2. Height 5 feet 7 inches, weight 149 pounds, BMI is 23. 3. Vital Signs: Blood pressure 99/64, heart rate 107, respiratory rate 16, room air saturation 97%, temperature 98.6. [place] [address] PAIN MANAGEMENT CONSULTATION Name: ALTAF VILLA Room: [facility]#: [id number] Admission: 04/14/18 Attend Phys: Ricco Farmer MD Discharge: Date of : 79 Report #: [id number] 4. Pain intensity /10. 5. Fall risk. The patient has not fallen in the last 3 months. 6. Blood thinner. The patient is not on a blood thinning agent. 7. History of hypertension. The patient is not being treated for hypertension. 8. Opioid therapy greater than 6 weeks. The patient is receiving some hydrocodone medication from the pain clinic. 9. Risk assessment tool, low risk for opioid use. 10. Functional assessment tool. 11. Recreational drug use. The patient denies use of recreational drugs. 12. Tobacco use. The patient denies use of tobacco. 13. Alcohol: The patient denies use of alcoholic beverages. PHYSICAL EXAMINATION: GENERAL: The patient is a well-developed, well-nourished white female. Appears her stated age. She is alert and oriented x 3. She seems slightly less depressed than at the last visit. Speech is appropriate. HEENT: Normocephalic, atraumatic. Extraocular eye muscles intact. The patient is wearing glasses. Hearing is within normal limits. Sclerae nonicteric. Mucous membranes are moist. NECK: Without bruits, or adenopathy. Well-healed scar in the anterior portion of her neck. The patient has some pain and discomfort with left and right lateral bending, left and right lateral rotation, flexion and extension. These discomforts radiating to her neck. HEART: Regular rate. S1, S2. LUNGS: Clear to auscultation without rhonchi. ABDOMEN: Nontender. MUSCULOSKELETAL: Without significant scoliosis, kyphosis or lordosis. Upper extremity muscle strength is judged to be 4+5. The patient gives way secondary to muscle soreness, lower extremity muscle strength is judged to be 5/5 for the major muscle groups in the lower extremity. IMPRESSION: 1. Myofascial pain involving the neck, shoulders, and mid back/thoracic area. 2. 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 3. History of radiation to the neck. 4. Depression. 5. Anxiety. 6. Insomnia. 7. Cervical cancer history. 8. History of migraines. 9. GI complaints with some nausea. The patient will follow up with her GI doctor in the near future regarding nausea. RECOMMENDATIONS: We discussed treatment options with the patient. The patient would like to proceed with a trigger point injection to the 4 areas on her back, which are quite problematic. They include the left shoulder, right shoulder, [facility] [address] [facility] [place] [address] PAIN MANAGEMENT CONSULTATION Name: ALTAF VILLA Room: [facility]#: [id number] Admission: 04/14/18 Attend Phys: Ricco Farmer MD Discharge: Date of : 79 Report #: [id number] left scapula as well as the right scapular area. She feels that the hydrocodone is helpful. She does not take it every day. It was felt the Valium was significantly helpful in relaxation and decreasing muscle spasms. We explained that long-term use of benzodiazepines can be problematic, particularly in pain conditions. The patient has been trying to stretch. States that she is doing some of the exercises. She and I went over at the last visit, which include gentle stretching exercises. We explained the musculoskeletal/myofascial pain. Oftentimes results from areas of trigger points. Stretching is usually one of the best ways to decrease this problem. She feels that the Elavil is helpful. She is on 100 mg at bedtime. We will increase it to 125 mg. She will call us if she has any problems with that medication. Overall, she feels that it is helpful and would like to continue its use. She feels that baclofen continues to be helpful with spasms. We will rewrite for the baclofen medication. She will follow up in the future as needed. She will follow up with her primary physician in regards to return to work. We would recommend the patient can return to work as tolerated. A functional capacity exam might be helpful in determining her limitations. We would like to thank you for letting us participate in her care. We hope she continues to improve. Procedure Note: Patient was taken to the procedure room. She was helped on to the examination table. Four trigger point were identified. 1. Left trapezius, 2. right trapezius, 3. left levator scapulae, 4. right rhomboideus major. These muscles were sterile preped with chlorehexidine solution. Each was identified and a #25 needle advanced into the trigger point the patient confirmed reproduction of myofacial pain a total of 6 cc 0.25% bupivicane and 30mg triamcinolone was injected into each site. Patient tolerated procedure well. No complaints of SOB. Aspiration each site without air or heme. Bandaids placed. Pt remained in the pain clinic for and apporpriated time. She will followup prn. <ELECTRONICALLY SIGNED> By: Ricco Farmer MD 04/20/18 1342 1503 1854N. Emmanuel Farmer MD /HYACINTH
== END | disposition home or self-care (01) ==
LOC: M.PC 01:12
DX: M79.1 Myalgia (principal); F32.9 Major depressive disorder, single episode, unspecified; F41.9 Anxiety disorder, unspecified; G43.909 Migraine, unspecified, not intractable, without status migrainosus; Z87.19 Personal history of other diseases of the digestive system; Z85.41 Personal history of malignant neoplasm of cervix uteri; Z85.828 Personal history of other malignant neoplasm of skin; Z91.041 Radiographic dye allergy status; Z88.8 Allergy status to other drugs, medicaments and biological substances

== ENCOUNTER → 2018-06-21 | Outpatient (CLI) | payer OTHER ==
--- NOTE | 2018-06-29 16:41 | PAINCON ---
[address] [address] PAIN MANAGEMENT CONSULTATION Name: ALTAF VILLA [id number] Admission: 06/21/18 Attend Phys: Ricco Farmer MD Discharge: Date of : 79 Report #: [id number] THIS REPORT FOR: //name// CC: Reese Farmer DATE OF SERVICE: 06/21/2018 We discussed treatment options of trigger points with the patient. Risks and benefits of the procedure, which could include infection, increased muscle soreness, no improvement in pain, pneumothorax were discussed. The patient elects to proceed. PROCEDURE NOTE: The patient was taken to the examination room. She was placed perpendicular on the table. A chair was placed under her feet. Her left and right trapezius area were sterilely prepped with a Betadine solution with chlorhexidine solution. The area of the rhomboids on the left and right were sterilely prepped as well. The right rhomboid was identified. A 25-gauge needle was then advanced into the area of the trigger point. The patient states that this did reproduce her discomfort. A total of 5 mL of 0.5% bupivacaine and 20 mg triamcinolone was injected into this trigger point. A trigger point in the right trapezius area was then identified. A 25-gauge needle was then advanced to this area. A total of 5 mL of 0.5% bupivacaine and 20 mg triamcinolone was injected into that area. The left shoulder area and the trapezius was noted and trigger point was identified. A 25-gauge needle was then advanced into the area of the trapezius. The patient states that this reproduced her discomfort. A total of 5 mL of 0.5% bupivacaine and 20 mg triamcinolone was injected. The rhomboid area on the left was identified. Trigger point was noted. A 25-gauge needle was then advanced to the area of the trigger point. A total of 5 mL of 0.5% bupivacaine and 20 mg triamcinolone was injected. The patient tolerated the procedure well. There were no complications. There was no respiratory complaints at the time of discharge. We would like to thank you for letting us participate in her care. We hope she continues to improve. <ELECTRONICALLY SIGNED> By: Ricco Farmer MD 06/29/18 1641 1533 0140Ricco Farmer MD /[facility]
--- NOTE | 2018-06-29 16:41 | PAINCON ---
[address] [address] PAIN MANAGEMENT CONSULTATION Name: ALTAF VILLA Room: [facility] Rojelio#: [id number] Admission: 06/21/18 Attend Phys: Ricco Farmer MD Discharge: Date of : 79 Report #: [id number] THIS REPORT FOR: //name// CC: Reese Farmer DATE OF SERVICE: 06/21/2018 FOLLOWUP HISTORY: "I am still having some soreness in my neck and mid portion of my back". HISTORY: The patient is a 42-year-old female who has been seen in the pain clinic because of chronic pain in her back. As you may recall, she initially hurt her back while lifting a 400-pound patient. After the patient fell, she tried to stop the patient's motion. She noticed severe pain and discomfort in her neck, shoulders and has been treated with physical therapy as well as medications and time off from work. She rates her pain as a 7/10 at this juncture. She feels that the amitriptyline 125 mg at bedtime were helpful. She has found baclofen helpful. She used hydrocodone and notes that that medication is beneficial as well. She states that she has been worked up by her doctors. There is possibility of systemic lupus problems. She also has had some elevated levels of a test, which she states might indicate uterine cancer. Overall, she feels that things are going reasonably well. She would like to proceed with an injection at this juncture to try and help with her pain and discomfort. ALLERGIES: CONTRAST DYE CAUSES A RASH, COMPAZINE. MEDICATIONS: Amitriptyline 125 mg at bedtime, baclofen 60 mg, for muscle spasm, Cymbalta 20 mg b.i.d., baclofen 10 mg 2 tablets p.o. t.i.d., [place] 5/325 q. 6 hours p.r.n. pain. Pain intensity. PHYSICAL EXAMINATION: The patient rates her pain as a 7/10. PAIN CLINIC ASSESSMENT: 1. Osteoarthritis/rheumatoid arthritis. The patient states she has not been treated for rheumatoid arthritis or osteoarthritis. 2. Height 5 feet 7 inches, weight 159 pounds, BMI is 25. 3. Vital Signs: Blood pressure 103/70, heart rate 109, respiratory rate 18, room air saturation 96%, temperature 98.3. 4. Pain score 7/10. 5. Fall. The patient has not fallen in the last 3 months. 5. Blood thinner. The patient is not on a blood thinning medication. 6. Hypertension. The patient is not being treated for hypertension. 7. Opioid therapy greater than 6 weeks. The patient is not receiving opioids on a regular basis. 8. Risk assessment tool, [place] [address] PAIN MANAGEMENT CONSULTATION Name: ALTAF VILLA Room: [facility]#: [id number] Admission: 06/21/18 Attend Phys: Ricco Farmer MD Discharge: Date of : 79 Report #: [id number] 9. Functional assessment tool. 10. Recreational drug use. The patient denies use of recreational drugs. 11. Tobacco: The patient denies use of tobacco. 12. Alcohol: The patient denies use of alcoholic beverages. PHYSICAL EXAMINATION: GENERAL: The patient is a well-developed, well-nourished white female. Appears her stated age. She is alert and oriented x3. She seems slightly depressed. Speech is appropriate and fluent. HEENT: Normocephalic, atraumatic. Extraocular eye muscles intact. The patient is wearing glasses. Hearing is within normal limits. Sclerae nonicteric. Mucous membranes are moist. NECK: Without bruits or adenopathy. The patient has pain and discomfort on the left and right trapezius area. She has a well-healed scar in the anterior portion of her neck, status post surgery. HEART: Regular rate. S1, S2. LUNGS: Clear to auscultation without rhonchi. ABDOMEN: Nontender. MUSCULOSKELETAL: Without significant scoliosis, kyphosis or lordosis. The patient complains of pain and discomfort in the right patellar area. States that the left patellar area had been realigned a number of years ago. The pain was somewhat significant. She declined realignment on the right hand side and is now having pain and discomfort associated with that. The patient has petechiae in her left as well as in the right forearm. EXTREMITIES: Upper extremity muscle strength is judged to be 4+/5. The patient gives way secondary to muscle soreness. Has tenderness to palpation in the major muscle groups of the upper extremities. Muscle strength judged to be 5/5 for the lower muscle groups in the lower extremity. IMPRESSION: 1. Myofascial pain in the neck, shoulders, back and thoracic area. 2. Possible systemic lupus background, which is being evaluated by her physicians. 3. 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 4. History radiation to the neck. 5. Depression. 6. Anxiety. 7. Insomnia. 8. Cervical cancer history. 9. History of migraines. 10. GI complaints with history of nausea. RECOMMENDATIONS: We discussed treatment options with the patient. Risk and benefits of trigger point injections were again reviewed. The patient states that she is extremely sore. She has had limited range of motion. She would like to proceed with a trigger point injection to the affected areas today. She [facility] [address] [facility] [place] [address] PAIN MANAGEMENT CONSULTATION Name: ALTAF VILLA Room: [facility]#: [id number] Admission: 06/21/18 Attend Phys: Ricco Farmer MD Discharge: Date of : 79 Report #: [id number] has had no complications from its use. She would like to have her medications renewed. Feels that the amitriptyline 125 mg, baclofen, hydrocodone medications could be renewed. A script for these medications were dispensed. The patient will follow up in the near future. We would like to thank you for letting us participate in her care. <ELECTRONICALLY SIGNED> By: Ricco Farmer MD 06/29/18 1641 1530 0150N. Emmanuel Farmer MD /nt
== END | disposition home or self-care (01) ==
LOC: M.PC 04:49
DX: M79.1 Myalgia (principal); Z98.890 Other specified postprocedural states; F32.9 Major depressive disorder, single episode, unspecified; F41.9 Anxiety disorder, unspecified; G43.909 Migraine, unspecified, not intractable, without status migrainosus; Z79.899 Other long term (current) drug therapy; Z88.8 Allergy status to other drugs, medicaments and biological substances

== ENCOUNTER → 2018-07-19 | Outpatient (CLI) | payer OTHER ==
--- NOTE | 2018-08-15 10:00 | PAINCON ---
[address] [address] PAIN MANAGEMENT CONSULTATION Name: ALTAF VILLA [id number] Admission: 07/19/18 Attend Phys: Ricco Farmer MD Discharge: Date of : 79 Report #: [id number] THIS REPORT FOR: //name// CC: Reese Farmer DATE OF SERVICE: 07/19/2018 CHIEF COMPLAINT: "Pain in the shoulders and mid back, helped with trigger point injections. I would like to do it again." FOLLOWUP HISTORY: The patient is a 42-year-old female who has been followed in the Pain Clinic because of myofascial pain. As you recall, her initial injury was that of trying to keep a 400-pound patient from falling. Since that time, she has noted some continued pain and discomfort in her upper body. She has pain in her shoulders, has pain in her mid back as well. She has undergone physical therapy. She continues to stretch and do the exercises, which were prescribed. The patient finds that her medical management with amitriptyline and baclofen is helpful. She feels the hydrocodone has been beneficial as well. The patient has returned to work on a limited basis. She overall feels that her pain has improved with use of the trigger point injections. She is working 6 days, 6 hours at a time and minimized the amount of lifting that she is doing. She has pain in her left as well as her right neck. She feels that these areas are really tied around the shoulder area. She has noted some pain and discomfort in the mid thoracic area. Forward flexing and bending can increase pain and discomfort at about the level of her bra line. ALLERGIES: CONTRAST DYE CAUSED A RASH, COMPAZINE. MEDICATIONS: Amitriptyline 125 mg at bedtime, baclofen 10 mg t.i.d., hydrocodone 5/325s one p.o. b.i.d., Synthroid 50 mcg, Zofran 4 mg dissolve under tongue, Phenergan 12.5 mg suppository, Chantix, Protonix 40 mg daily. PAIN CLINIC ASSESSMENT: 1. Osteoarthritis/rheumatoid arthritis: The patient states that she is not being treated for rheumatoid arthritis or osteoarthritis. 2. Height 5 feet 4 inches, weight 156 pounds, BMI is 24. 3. Vital signs: Blood pressure 102/71, heart rate 76, respiratory rate 16, room air saturation 99%, temperature 98.2. 4. Pain intensity: 2-3/10. 5. Fall history: The patient has not fallen in the last 3 months. 6. Blood thinner: The patient is not on a blood thinning medication, but does have some ecchymosis/easy bruising on her arms. 7. Hypertension: The patient is not being treated for hypertension. 8. Opioid therapy greater than 6 weeks: The patient is not receiving opioid [place] [address] PAIN MANAGEMENT CONSULTATION Name: ALTAF VILLA Room: [facility]#: [id number] Admission: 07/19/18 Attend Phys: Ricco Farmer MD Discharge: Date of : 79 Report #: [id number] 9. Risk assessment tool: Low for use of opioid medication. 10. Functional assessment tool. 11. Recreational drug use: The patient denies use of recreational drugs. 12. Tobacco: The patient denies use of tobacco. 13. Alcohol: The patient denies use of alcoholic beverages. PHYSICAL EXAMINATION: GENERAL: The patient is a well-developed, well-nourished white female. She appears her stated age. She is alert and oriented x 3. She seems less depressed than she was at the last visit. Speech is fluent. HEENT: Normocephalic, atraumatic. Extraocular eye muscles intact. Sclerae are nonicteric. Mucous membranes are moist. Hearing is within normal limits. NECK: Without adenopathy or bruits. Reasonably good range of motion. The patient has pain and discomfort in the left and right trapezius area. There is a well-healed scar in the anterior portion of her neck status post surgery. HEART: Regular rate. S1, S2. LUNGS: Clear to auscultation, without rhonchi or rales. ABDOMEN: Nontender. MUSCULOSKELETAL: Without significant scoliosis, kyphosis, or lordosis. The patient has pain and discomfort in the left as well as in the right trapezius area. Palpation in these areas reproduces these discomforts. The patient has pain and discomfort in the midline area, near the spinous process. Palpation at approximately T7-T8 reproduces pain and discomfort. EXTREMITIES: Upper extremity muscle strength is judged to be 4+/5 for the major muscle groups. The patient gives way secondary to soreness. Lower extremity muscle strength is judged to be 5/5 for the major muscle groups in the lower extremities. IMPRESSION: 1. Myofascial pain in the neck, shoulders, back and thoracic area. 2. Possible systemic lupus background. The patient is being evaluated. 3. 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 4. History of radiation to the neck. 5. Depression. 6. Anxiety. 7. Insomnia. 8. Cervical cancer history. 9. History of migraine. 10. Gastrointestinal complaints with history of nausea. RECOMMENDATIONS: We discussed treatment options with the patient. At this juncture, we will proceed with a trigger point injection to the left and right shoulder area. Palpation in these areas reproduced her discomfort. She elects to proceed. We discussed possible complications of the procedure, which could include infection, worsening of pain, no improvement in pain, pneumothorax, and the [place] [address] PAIN MANAGEMENT CONSULTATION Name: ALTAF VILLA Room: [facility]#: [id number] Admission: 07/19/18 Attend Phys: Ricco Farmer MD Discharge: Date of : 79 Report #: [id number] PROCEDURE NOTE: The patient was placed in sitting position. Her back was sterilely prepped with a Betadine solution at the T7-T8 area. This area was tender to palpation. A 25-gauge needle was then advanced into the area. The patient states that this did reproduce her discomfort. A total of 10 mL of 0.5% bupivacaine and 40 mg triamcinolone was injected. The patient tolerated the procedure well. There were no complications. The left upper shoulder area was sterilely prepped with a Betadine solution. A 25-gauge needle was then advanced to the trigger point. A total of 8 mL of 0.5% bupivacaine was injected with 40 mg Depo-Medrol. The patient tolerated the procedure well. The right side was sterilely prepped with a Betadine solution. A 25-gauge needle was then advanced into this area. A total of 8 mL of 0.5% bupivacaine and 40 mg Depo-Medrol was injected. The patient tolerated the procedure well. There were no complications. She remained in the Pain Clinic for an appropriate amount of time. She will follow up in the future as needed. We would like to thank you for letting us participate in her care. We hope she continues to improve. <ELECTRONICALLY SIGNED> By: Ricco Farmer MD 08/15/18 1000 1225 [id number]. Emmanuel Farmer MD /nt
== END | disposition home or self-care (01) ==
LOC: M.PC 05:55
DX: M79.1 Myalgia (principal); G89.29 Other chronic pain; F32.9 Major depressive disorder, single episode, unspecified; F41.9 Anxiety disorder, unspecified; G43.909 Migraine, unspecified, not intractable, without status migrainosus; Z87.19 Personal history of other diseases of the digestive system; Z85.41 Personal history of malignant neoplasm of cervix uteri; Z86.018 Personal history of other benign neoplasm; Z79.899 Other long term (current) drug therapy; Z91.041 Radiographic dye allergy status; Z88.8 Allergy status to other drugs, medicaments and biological substances; Z79.891 Long term (current) use of opiate analgesic; Z86.73 Personal history of transient ischemic attack (TIA), and cerebral infarction without residual deficits

== ENCOUNTER 2018-07-29 11:11 | Emergency (ER) | payer MEDICAID ==
[~2018-07-29] VITALS: Ht 170.2 cm; Wt 68.0 kg
[~2018-07-29 11:11] MED LIST changes: -ATIVAN1 MG PO; -ELIQUIS2.5 MG PO; -EXCEDRIN CAPLE1 EACH PO; -IMITREX 50 MG T50 MG PO; -NEURONTIN 300300 M1 PO; -PRENATAL PO; -TOPROL XL25 MG PO; -VALACYCLOVIR1000 MG PO; -VENLAFAXINE HCL75 M1 PO; -XANAX 0.5 MG0.5 MG PO
[2018-07-29] MEDS ORDERED: TOPROL XL25 MG PO (11:49)
[2018-07-29 12:15] LABS: ABSOLUTE BASOPHILS 0.1 thou/uL (0.0-0.2); ABSOLUTE EOSINOPHILS 0.1 thou/uL (0.0-0.7); ABSOLUTE LYMPHOCYTES 2.6 thou/uL (0.8-5.3); ABSOLUTE MONOCYTES 0.8 thou/uL (0.0-1.2); ABSOLUTE NEUTROPHILS 8.5 thou/uL (1.6-8.1); BASOPHILS 0.7 %; EOSINOPHILS 0.5 %; HEMATOCRIT 39.3 % (37.0-47.0); LYMPHOCYTES 21.4 %; MCH 30.5 pg (26.0-34.0); MCHC 33.1 g/dL (28.0-37.0); MCV 92.1 fL (80.0-100.0); MONOCYTES 6.5 %; MPV 7.2 fl. (7.2-11.1); NUCLEATED RBCS 0 /100WBC; PLATELET COUNT* 323 thou/uL (150-400); POLYS 70.9 %; RBC 4.27 mil/uL (4.20-5.00); RDW-CV 15.1 % (10.5-14.5)
[2018-07-29 12:24] LABS: ANION GAP 11 mmol/L (7-16); BUN 12 mg/dL (7-18); CALCIUM 8.6 mg/dL (8.5-10.1); CHLORIDE 101 mmol/L (98-107); CO2 26 mmol/L (21-32); CREATININE 0.9 mg/dL (0.6-1.3); GLUCOSE 94 mg/dL (70-99); POTASSIUM 3.5 mmol/L (3.5-5.1); SODIUM 138 mmol/L (136-145)
[2018-07-29 12:27] LABS: APTT 24.4 Seconds (25.0-31.3); PROTIME 9.9 Seconds (9.20-11.50)
[2018-07-29 12:39] LABS: ALBUMIN 3.5 g/dL (3.4-5.0); ALKALINE PHOSPHATASE 82 U/L (46-116); LIPASE 170 U/L (73-393); MAGNESIUM 2.2 mg/dL (1.8-2.4); NT-PRO BRAIN NAT PEPTIDE 82 pg/mL (<300); SGOT 12 U/L (15-37); SGPT 29 U/L (30-65); TOTAL BILIRUBIN 0.2 mg/dL (<0.1-1.0); TOTAL PROTEIN 7.5 g/dL (6.4-8.2); TROPONIN-I LEVEL <0.06 ng/mL (<0.06)
[2018-07-29] MEDS ORDERED: ATIVAN1 MG PO (14:29)
--- NOTE | 2018-07-29 14:38 | EKG ---
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
[2018-07-29 14:44] VITALS: BP 112/68
--- NOTE | 2018-07-30 15:05 | EKG ---
[place] [address] ELECTROCARDIOGRAM REPORT Name: ALTAF VILLA Room: [facility]#: [id number] Admission: 07/29/18 Attend Phys: Discharge: 07/29/18 Date of : 79 Report #: [id number] THIS REPORT FOR: //name// [facility] ED Test Date: 2018-07-29 Test Time: 14:05:11 Pat Name: ALTAF VILLA Department: Room: Gender: F [place] Room Worker: JUAN A : 1975 Requested By: Declan Camara Order Number: [id number] MD: Kyrie Araujo Measurements Intervals [place] Rate: 71 P: 32 AR: 134 QRS: 41 QRSD: 86 T: 41 QT: 406 QTc: 442 Interpretive Statements Sinus rhythm Baseline wander in lead(s) V4,V5,V6 Compared to ECG 07/29/2018 11:16:51 Sinus tachycardia no longer present Electronically Signed On 07-30-2018 15:04:56 CDT by Kyrie Araujo [email or web address] <ELECTRONICALLY SIGNED> By: Denisha Araujo MD, [facility] 07/30/18 1504 1405 1405 Denisha Araujo MD, [facility] /EPI
== END 2018-07-29 14:45 | disposition home or self-care (01) ==
LOC: M.ERS 11:11
PROVIDERS: Emergency Medicine Emergency Medical Services
DX: R07.89 Other chest pain (principal); R00.2 Palpitations; F41.9 Anxiety disorder, unspecified; F32.9 Major depressive disorder, single episode, unspecified; G47.00 Insomnia, unspecified; G43.909 Migraine, unspecified, not intractable, without status migrainosus; Z85.41 Personal history of malignant neoplasm of cervix uteri; Z85.89 Personal history of malignant neoplasm of other organs and systems; F17.210 Nicotine dependence, cigarettes, uncomplicated; Z88.5 Allergy status to narcotic agent; Z91.041 Radiographic dye allergy status; Z88.8 Allergy status to other drugs, medicaments and biological substances

== ENCOUNTER 2018-08-09 18:54 | Inpatient (IN) | payer MEDICAID ==
[~2018-08-09] VITALS: Ht 157.5 cm; Wt 75.7 kg
[~2018-08-09 18:54] MED LIST changes: +ATIVAN1 MG PO; +TOPROL XL25 MG PO
[2018-08-09 18:58] VITALS: BP 132/89
[2018-08-09 19:37] LABS: URINE BILIRUBIN NEGATIVE (Negative); URINE BLOOD NEGATIVE (Negative); URINE CLARITY CLEAR; URINE COLOR YELLOW; URINE GLUCOSE-RANDOM NEGATIVE (Negative); URINE KETONES NEGATIVE (Negative); URINE LEUKOCYTES-REFLEX NEGATIVE (Negative); URINE NITRITE-REFLEX NEGATIVE (Negative); URINE PROTEIN NEGATIVE (Negative); URINE UROBILINOGEN 0.2 E.U./dl (0.2-1.0)
[2018-08-09 19:40] LABS: ABSOLUTE BASOPHILS 0.1 thou/uL (0.0-0.2); ABSOLUTE EOSINOPHILS 0.2 thou/uL (0.0-0.7); ABSOLUTE LYMPHOCYTES 3.1 thou/uL (0.8-5.3); ABSOLUTE MONOCYTES 0.7 thou/uL (0.0-1.2); ABSOLUTE NEUTROPHILS 6.2 thou/uL (1.6-8.1); BASOPHILS 0.8 %; EOSINOPHILS 1.6 %; HEMATOCRIT 38.4 % (37.0-47.0); HEMOGLOBIN 12.9 gm/dL (12.0-15.0); LYMPHOCYTES 30.3 %; MCH 31.3 pg (26.0-34.0); MCHC 33.5 g/dL (28.0-37.0); MCV 93.6 fL (80.0-100.0); MONOCYTES 6.5 %; MPV 7.5 fl. (7.2-11.1); NUCLEATED RBCS 0 /100WBC; PLATELET COUNT* 323 thou/uL (150-400); POLYS 60.8 %; RBC 4.11 mil/uL (4.20-5.00); RDW-CV 15.8 % (10.5-14.5); WBC 10.2 thou/uL (4.0-11.0)
[2018-08-09 19:46] LABS: AMP/METHAMP Negative (Negative); BARBITURATES Negative (Negative); BENZODIAZEPINES POSITIVE (Negative); COCAINE Negative (Negative); METHADONE Negative (Negative); OPIATES POSITIVE (Negative); PCP Negative (Negative); THC Negative (Negative)
[2018-08-09 19:54] LABS: ANION GAP 11 mmol/L (7-16); BUN 5 mg/dL (7-18); CALCIUM 8.9 mg/dL (8.5-10.1); CHLORIDE 99 mmol/L (98-107); CO2 26 mmol/L (21-32); CREATININE 0.9 mg/dL (0.6-1.3); GLUCOSE 125 mg/dL (70-99); POTASSIUM 3.5 mmol/L (3.5-5.1); SODIUM 136 mmol/L (136-145)
[2018-08-09 19:58] LABS: BE -3.9 mmol/L (-2 to +3); HCO3 20.7 mmol/L (22.0-26.0); pH 7.378 (7.340-7.450)
[2018-08-09 19:59] LABS: SALICYLATE 3.9 mg/dL (2.8-20.0)
[2018-08-09 20:01] LABS: PO2 444.4 mmHg (75.0-100.0)
[2018-08-09 20:02] LABS: ALBUMIN 3.3 g/dL (3.4-5.0); ALKALINE PHOSPHATASE 95 U/L (46-116); SGOT 17 U/L (15-37); SGPT 32 U/L (30-65); TOTAL BILIRUBIN 0.1 mg/dL (<0.1-1.0); TOTAL PROTEIN 7.4 g/dL (6.4-8.2); TROPONIN-I LEVEL <0.06 ng/mL (<0.06)
[2018-08-09 20:07] LABS: ACETAMINOPHEN < 2 ug/mL (10-30); ALCOHOL < 10 mg/dL (<10)
[2018-08-09 21:17] VITALS: BP 146/86
[2018-08-09 21:23] VITALS: BP 143/94
[2018-08-09 22:00] VITALS: BP 137/85
[2018-08-09 23:00] VITALS: BP 138/85
[2018-08-10] VITALS (17 sets, daily range): BP systolic 98–139; BP diastolic 61–86
[2018-08-10 06:14] LABS: BE 2.9 mmol/L (-2 to +3); HCO3 25.1 mmol/L (22.0-26.0); PCO2 29.7 mmHg (35.0-45.0); PO2 111.6 mmHg (75.0-100.0); pH 7.544 (7.340-7.450)
--- NOTE | 2018-08-10 08:16 | NUR ---
Pt arrived to ICU at 2114 from ED. Pt intubated and appearing sedated, unresponsive. VSS. Reviewed pt's history with , though he states his history with her goes back only 2 years. States he will bring pt's medications for reconciliation in the morning. Pt's reports he filled out affidavit to hold pt until "things are resolved." Propofol infusing at 30 mcg/kg/min. [place] draining dark ariel urine. Pt opens eyes spontaneously, but does not follow commands. Bilat soft wrist restraints in place. Will continue to monitor.
[2018-08-10] MEDS ORDERED: VALACYCLOVIR1000 MG PO (08:32)
[2018-08-10] MEDS ORDERED: XANAX 0.5 MG0.5 MG PO (08:34)
[2018-08-10] MEDS ORDERED: IMITREX 50 MG T50 MG PO (08:37)
[2018-08-10] MEDS ORDERED: BENTYL 20 MG TA20 M1 PO (08:42)
[2018-08-10] MEDS ORDERED: VENLAFAXINE HCL75 M1 PO (08:43)
--- NOTE | 2018-08-10 09:00 | NUR ---
RN RESUMED CARE OF PT THIS AM. PT SEDATED AND VENTILATED ON PROPOFOL. PT VS STABLE. AFEBRILE. PT RESPONSIVE TO STIMULI, NOT FOLLOWING COMMANDS. FAMILY AT BEDSIDE. DENIES FURTHER QUESTIONS/CONCERNS AT THIS TIME.
--- NOTE | 2018-08-10 10:05 | EKG ---
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1975 Requested By: Robert Shetty Order Number: [id number] MD: Nicko Castillo Measurements Intervals [place] Rate: 90 P: 54 [place]: 151 QRS: 57 QRSD: 89 T: 58 QT: 378 QTc: 463 Interpretive Statements Sinus rhythm Abnormal R-wave progression, early transition Compared to ECG 07/29/2018 14:05:11 No significant changes Electronically Signed On 08-10-2018 10:05:40 CDT by Nicko Castillo [email or web address] <ELECTRONICALLY SIGNED> By: Nicko Castillo MD, [facility] 08/10/18 1005 35 35 Nicko Castillo MD, [facility] /EPI
--- NOTE | 2018-08-10 11:30 | NUR ---
SPOKE BRIEFLY WITH AT BEDSIDE. HE UNDERSTANDS PLAN OF CARE IS TO SEE IF SHE CAN BE EXTUBATED, SHE WILL NEED TELEPSYCH EVAL ONCE AWAKE AND ALERT. CASE MGT TO CONTINUE TO FOLLOW.
--- NOTE | 2018-08-10 16:57 | NUR ---
PT SLOWLY PROGRESSING TOWARDS GOALS THIS SHIFT. EXTUBATED AROUND 1300, REMAINS ON ROOM AIR SINCE EXTUBATION. AFTER EXTUBATION PT AGITATED AND IMPULSIVE, SECURITY CALLED, PT REMAINED IN BILATERAL SOFT WRIST RESTRAINTS UNTIL AROUND 1630 THIS EVENING WHEN SHE BECOME MORE CALM AND LESS IMPULSIVE. CHEEK REMOVED PT CONTINUED TO TRY TO PULL ON CATHETER AND STATED THAT IT WAS HURTING AND "GET IT OUT". SINCE REMOVAL OF CHEEK PT CALM AND NO LONGER C/O PAIN. ATIVAN AND FENTANYL ADMINISTERED PRN FOR PAIN/AGITATION. FAMILY AT BEDSIDE. FAMILY REQUESTS THAT PT SISTER, MOTHER, AND OLDEST DAUGHTER NOT BE ALLOWED TO VISIT PT OR RECEIVE ANY INFORMATION.
--- NOTE | 2018-08-10 20:43 | NUR ---
ASSESSMENT COMPLETED, SEE CHARTING. PT. WAS UNABLE TO RESPOND TO THIS RN VERBALLY, CONTINUED TO MOAN, ONLY WORDS SHE STATED WAS "OUCH" AND "OWW". SITTER AT BEDSIDE, RIGHT EJ 18# PLACED. FENTANYL GIVEN PER PAIN, O2 SAT DROPPED AFTER GIVEN, 4L O2 PLACED
[2018-08-11] VITALS (16 sets, daily range): BP systolic 85–111; BP diastolic 50–74
--- NOTE | 2018-08-11 02:35 | NUR ---
PT. MORE ALERT, TEARFUL. STATING PAIN IS 10/1O IN HEAD, THROBBING. FENTANYL GIVEN PER PRN ORDER. REQUESTING TO TALK TO , PHONE PROVIDED TO CALL WITH SITTER AND NURSE AT BEDSIDE. ALLOWED TO ENTER PT'S ROOM AT THIS TIME FOR A TOTAL OF 30 MINUTES ONLY. PT. VOICES UNDERSTANDING. ATIVAN GIVEN TO CALM NERVES
--- NOTE | 2018-08-11 05:52 | NUR ---
PT. PROGRESSING TOWARDS GOALS. SAFETY MAINTAINED, SITTER AT BEDSIDE THROUGHOUT THE SHIFT. PT. HAS NOT URINATED THIS SHIFT, BLADDER SCAN DONE, 335. WILL CONTINUE TO MONITOR.
--- NOTE | 2018-08-11 07:30 | NUR ---
ASSUME CARE OF PT. SITTER AT FOR SAFETY. PT ASKING OR PAIN MEDS FOR HEADACHE AND SORE THROAT. PT ANXIOUS. STATES SHE IS CONCERNED ABOUT OTHER EMPLOYEES FINDING OUT HER HEALTH INFORMATION. REINFORCED HIPPAA TO PT. PT MADE CONFIDENTIAL PER REGISTRATION AND PT REQUEST
--- NOTE | 2018-08-11 10:00 | NUR ---
PT REQUESTING IV PAIN AND ANXIETY MEDS. INSTRUCTED PT THAT MEDS CANNOT BE GIVEN AT THE SAME TIME BUT WILL GIVE ORDERED
[2018-08-11] MEDS ORDERED: ELIQUIS2.5 MG PO (12:41)
--- NOTE | 2018-08-11 13:00 | NUR ---
PT TAKEN TO ROOM 116 VIA WC. REPORT GIVEN TO BETH. GOMEZ REMAINS AT BS FOR SAFETY
--- NOTE | 2018-08-11 13:06 | EKG ---
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
--- NOTE | 2018-08-11 18:13 | NUR ---
174-DR RON STATED PT WILL REQUIRE AN IN PATIENT PSYCH HOSPITALIZATION ADMISSION AND THAT ALL NARCOTICS AND BENZO'S SHOULD BE REMOVED FROM PT MED LIST. DR PEREZ UPDATED REGARDING THIS RECOMMENDATION AND HE GAVE A TELEPHONE ORDER TO REMOVE ALL NARCOTICS AND BENZO'S FROM PT MEDICATION LIST AT THIS TIME. DR PEREZ STATED THAT IF THE PT GETS OUT OF HAND THEN SECURITY SHOULD BE NOTIFIED. 1800-MEDICATIONS HAVE BEEN DISCONTINUED FROM PT MEDICATION LIST AND PT HAS BEEN UPDATED REGARDING THIS CHANGE AFTER PT REQUESTED PAIN MEDICATION AND ATIVAN.
--- NOTE | 2018-08-11 18:17 | NUR ---
173-PT TEARFUL AFTER PSYCH CONSULT STATING THAT "I WISH I WOULD HAVE JUST ". PT ASKING TO LEAVE HOSPITAL AND NOT GO TO IN PATIENT PSYCH, PT EDUCATED THAT IT IS PROTOCOL FOR ALL PATIENTS THAT ATTEMPT TO TAKE THEIR LIFE TO BE EVALUATED BY IN PATIENT PSYCH. 1744-PT CALLED OUT FOR ATIVAN AND PAIN MEDICATIONS AND IS REPORTING HYPERVENTILATING. PT HAS 1:1 AT BEDSIDE AND PT WAS UPDATED THAT SHE DOES NOT HAVE ANY PAIN MEDICATIONS AND THE ATIVAN HAS BEEN REMOVED FROM HER MEDICATION LIST WELL. DANIEL BUSTAMANTE WENT INTO THE PT ROOM AND EDUCATED THE PT REGARDING PLAN OF CARE AND THE NEED TO KEEP PT SAFE AT THIS TIME.
--- NOTE | 2018-08-11 22:15 | NUR ---
AT APPROXIMATELY 2030 PATIENT'S BLOOD PRESSURE WAS LOW AND PULSE TACHY. PATIENT HAD C/O CHEST PAIN. NOTIFIED. EKG ORDERED. NEW ORDERS GIVEN. PATIENT IS STABLE AT THIS TIME BUT IS VERY ANXIOUS. SITTER IN ROOM WITH PATIENT. WILL CONTINUE WITH PLAN OF CARE AND NURSING TO MONITOR.
--- NOTE | 2018-08-12 06:18 | NUR ---
PATIENT HAS SLEPT WELL THROUGHOUT THE NIGHT. PAIN CONTROLLED. MEDICATIONS GIVEN ORDERED AND CHARTED. VSS ON RA, ALTHOUGH BP SLIGHTLY LOW AND PULSE TACHYCARDIC. EJ TO RIGHT NECK WITH IV FLUIDS INFUSING TKO. ONE ON ONE WITH PATIENT IN ROOM. HOURLY ROUNDS MADE. WILL CONTINUE WITH PLAN OF CARE AND NURSING TO MONITOR.
[2018-08-12 07:30] VITALS: BP 88/51
--- NOTE | 2018-08-12 10:20 | EKG ---
[place] [address] ELECTROCARDIOGRAM REPORT Name: ALTAF VILLA Room: [address] IN .R.#: [id number] Admission: 08/09/18 Attend Phys: Daryl Griffiths Discharge: Date of : 79 Report #: [id number] THIS REPORT FOR: //name// [facility] Test Date: 2018-08-11 Test Time: 20:41:09 Pat Name: ALTAF VILLA Department: Room: [facility] Gender: F Cyber Operator: AP : 1975 Requested By: Antoni Hughes Order Number: [id number] Tari MD: Nicko Castillo Measurements Intervals [place] Rate: 103 P: 40 DE: 132 QRS: 54 QRSD: 85 T: 53 QT: 332 QTc: 435 Interpretive Statements Sinus tachycardia Compared to ECG 08/11/2018 10:47:52 No significant changes Electronically Signed On 08-12-2018 10:20:06 CDT by Nicko Castillo [email or web address] <ELECTRONICALLY SIGNED> By: Nicko Castillo MD, [facility] 08/12/18 1020 40 40 Nicko Castillo MD, [facility] /EPI
--- NOTE | 2018-08-12 12:45 | NUR ---
LINUX ARCHITECT SPOKE ATEMPTED TO FIND INPATIENT PSYCH PLACEMENT WITH [facility]-NO BEDS AVAILABLE, [facility]-NO ANSWER. SPOKE TO [facility] WITH ADMISSION AND SHE INFORMS THAT SHE IS 'UNSURE ABOUT BED AVAILABILITY, BUT WILL REVIEW REFERRAL.' ALSO SPOKE TO [place]IA WITH ADMISSIONS AT [facility] AND SHE INFORMS THAT 'THE THE NURSE HAS JUST ARRIVED AND WILL REVIEW THE REFERRAL.' CM WILL REMAIN AVAILABLE TO ASSIST AND FOLLOW NEEDED.
--- NOTE | 2018-08-12 15:51 | NUR ---
[facility] CALLED AND SAID THEY WILL NOT HAVE BED AVAILABILITY TODAY FOR PT. CM TO TRY BACK TOMORROW IF BED NOT FOUND. NO ANSWER AT [facility]. FAXED REFERRAL ANYWAY TO [facility] [phone]. LEFT MESSAGE FOR [facility] TO SEE IF THEY CAN ACCEPT [phone]. PAGED [facility] FOR CALL BACK TO SEE IF THEY HAVE BED [phone].
[2018-08-12 16:05] VITALS: BP 97/63
--- NOTE | 2018-08-12 18:38 | NUR ---
ALERT AND ORIENTED X4. UP STAND BY ASSIST IN ROOM. SITTER AT BEDSIDE THROUGHOUT SHIFT. SUICIDE PRECAUTIONS IN PLACE THROUGHOUT SHIFT. ANXIETY BEING MANAGED WITH PO ANXIETY MEDICATION. PATIENT DC'D IV TODAY, REFUSING TO HAVE ONE PUT BACK IN. DR. LONG IS AWARE. PATIENT HAS BEEN VERY DEPRESSED AND TEARFUL THIS SHIFT. PATIENT HAD AN AGITATED EPISODE THIS AFTERNOON, TOOK HER IV OUT, THROUGH COFFEE AT A NURSE, AND WAS DEMANDING TO GO HOME. SECURITY WAS CALLED AND DR. LONG AND NURSE TALKED TO PATIENT AND ANXIETY MEDICATION WAS ORDERED. VSS ON ROOM AIR. HOURLY ROUNDS HAVE BEEN MAINTAINED THROUGHOUT SHIFT. SITTER AT BEDSIDE. NURSING WILL CONTINUE TO MONITOR.
[2018-08-12 21:46] VITALS: BP 99/61
--- NOTE | 2018-08-13 05:13 | NUR ---
ALERT AND ORIENTED X4. PLEASANT AND COOPERATIVE WITH STAFF. 1:1 SITTER WITH PATIENT. PATIENT REQUESTED MORE MEDICATION TO HELP HER SLEEP. DR NOTIFIED AND NEW ORDER NOTED. MEDICATION GIVEN AND PATIENT SLEEPING QUIELTY ON HOURLY ROUNDS. WILL CONTINUE TO MONITOR.
[2018-08-13 08:00] VITALS: BP 117/76
--- NOTE | 2018-08-13 12:39 | NUR ---
ASSUMED CARE OF PATIENT AT 0700. ALERT AND ORIENTED X 4. VITAL SIGNS STABLE ON ROOM AIR. PATIENT HAS BEEN PLEASANT AND COOPERATIVE SINCE COMING ON SHIFT. TOLERATING DIET. MEDICATIONS GIVEN ORDERED. NURING WILL CONTINUE TO MONITOR.
--- NOTE | 2018-08-13 13:18 | NUR ---
CONTINUEING TO FOLLOW TO FIND INPT.PSYCH BED. PT.HAS LIMITED FACIITIES THAT ACCEPT HER INSURANCE. SPOKE WITH [facility] [phone]. HE SAID THEY ARE AT CAPACITY TODAY. [facility] [phone] SAID THEY ARE AT THEIR ACUITY LEVEL OF PSYCH PT.S AND CANNOT ACCEPT ANY MORE TODAY. FAXED REFERRAL INFORMATION TO [facility] AND SPOKE WITH HER AT [phone]. SHE SAID SHE WILL REVIEW BUT ARE LIMITED IN THEIR BED AVAILABILITY. TOLD HER SHE WAS MUCH BETTER BEHAVED THAN YESTERDAY. PAGED NURSE TRANSITIONAL AT [facility] [phone]. WILL FAX TO [facility] IF SHE ALLOWS.
--- NOTE | 2018-08-13 14:35 | NUR ---
PATIENT'S BROUGHT HER A HAIR TIE AND DARYA PINS. INFORMED PATIENT AND HER THAT THESE ITEMS WERE NOT ALLOWED WITH AN SI. THIS NURSE TOOK DARYA PINS AND HAIR TIE AWAY. PATIENT THEN STATED THAT SHE WOULD TAKE APART THE GLOVES AND USE THE BAND ON THERE. THIS NURSE TOOK AWAY ALL GLOVES IN PATIENT'S ROOM, WELL. PROVIDED A COPY OF THE SI PROTOCOL TO PATIENT, HER , AND THE SITTER AND EXPLAINED THINGS THAT WERE NOT ALLOWED.
[2018-08-13 16:30] VITALS: BP 96/61
--- NOTE | 2018-08-13 16:42 | NUR ---
PATIENT ALERT AND ORIENTED X 4. VITAL SIGNS STABLE ON ROOM AIR. AFEBRILE. UP AD EDWARD IN ROOM. 1:1 SITTER AT BEDSIDE. SI PRECAUTIONS IN PLACE AND PROTOCOL MAINTAINED. DENIES NAUSEA. PAIN/HEADAHCES BEING MANAGED WITH PO EXCEDRIN. THROAT LOSANGERS AND THROAT SPRAY GIVEN NEEDED FOR SORE THROAT/COUGH. HOURLY ROUNDS MAINTAINED THROUGHOUT THE SHIFT. CALL LIGHT WITHIN REACH. NURSING WILL CONTINUE TO MONITOR.
--- NOTE | 2018-08-13 18:18 | NUR ---
PATIENT ADAMENTLY REQUESTING TO GO HOME AND WANTS TO STAY AT HOME UNTIL PLACEMENT IS FOUND FOR HER. THIS NURSE INFORMED PATIENT THAT WE ARE UNABLE TO LET HER GO HOME, DUE TO THE FACT THAT SHE ATTEMPTED SUICIDE A FEW DAYS AGO. PATIENT GETTING INCREASINGLY AGITATED AND REQUESTED TO SPEAK TO DR. LONG IN PERSON. PAGED DR. LONG AND HE IS NO LONGER THE PHYSICIAN MARKETING ANALYTICS SPECIALIST. DR. LINK IS ON AND HAVE NOT HEARD BACK FROM HIM. HOUSE SUPERVISIOR WAS NOTIFIED OF PATIENT GETTING INCREASINGLY AGITATED. SECURITY WAS ALSO NOTIFIED TO BE ON ALERT. NURSING WILL CONTINUE TO MONITOR.
--- NOTE | 2018-08-13 18:46 | NUR ---
PATIENT'S CAME OUT TO NURSES STATION AND WAS HOSTILE AND AGITATED TOWARDS THIS NURSE AND OTHER NURSE WORKING. STATED THAT "IT WAS RIDICULOUS TO WAIT FOR PLACEMENT AND RACK UP A LARGE BILL." TOLD PATIENT'S THAT CASE MANAGEMENT WORKED HARD TO GET PLACEMENT FOR PATIENT TODAY, BUT WAS UNABLE TO FIND A FACILITY WITH A BED. PATIENT'S STORMED BACK OFF TO ROOM. PATIENT BECAME AGITATED, AGAIN, STATING SHE WANTED TO GO HOME. SECURITY AND SUPERVISOR JEWELRY DEPARTMENT WERE CALLED AND CAME TO ROOM. INFORMED THAT HE COULD NOT SPEND THE NIGHT AND NEEDED TO LEAVE BY 2029. WILL INFORM BILLIARD TABLE ASSEMBLER. NURSING WILL CONTINUE TO MONITOR.
[2018-08-13 21:00] VITALS: BP 94/60
--- NOTE | 2018-08-14 04:32 | NUR ---
ALERT AND ORIENTED X4. NO COMMENTS OF SUICIDIAL IDEATIONS MADE THIS SHIFT. 1:1 SITTER WITH PATIENT AT ALL TIMES. PATIENT CALM AND COOPERATIVE. SLEPT QUIETLY AFTER BEDTIME MEDICATIONS GIVEN. SI PRECAUTIONS IN PLACE. UP AD EDWARD WITH STAFF.
[2018-08-14 08:30] VITALS: BP 96/70
--- NOTE | 2018-08-14 16:53 | NUR ---
PT IS ALERT AND ORIENTED. PT IS ON RA. NO IV PRESENT. PT C/O PAIN AND SORE THROAT. PT RECEIVED PO TORADOL, THROAT LOZENGES, AND SPRAY ORDERED. PT HAS ASKED FOR ATIVAN TO HELP WITH ANXIETY. PT REQUESTED MORE, RESIDENT NOTIFIED AND TOLD PT SHE COULD NOT AND THEY WILL BE TAPERING IT DOWN. PT REQUESTED PT ADVOCATE, SOLDERER CAME AND SPOKE WITH PT ABOUT WHY THEY COULD NOT LREAVE. PT STATED FOUND PLACE TO TAKE HIS , CASE MANAGEMENT NOTIFIED AND CALLED. THEY STATED THE FACILITY HAD NO BEDS AVAILABLE. CASE MANAGEMENT LOOKED INTO ANOTHER FACILITY BUT NO WORD AT THIS TIME ABOUT PLACEMENT. CALL LIGHT IN REACH. HOURLY ROUNDING COMPLETED. SITTER IN ROOM JENNIFER LL TIME. WILL CONTINUE TO MONITOR.
[2018-08-14 17:07] VITALS: BP 122/76
--- NOTE | 2018-08-14 18:29 | NUR ---
READ, REVIEWED, AND AGREE WITH INTERVENTIONS AND CHARTING COMPLETED BY OMER Andrade RN.
[2018-08-14 20:30] VITALS: BP 106/60
--- NOTE | 2018-08-15 05:19 | NUR ---
ALERT AND ORIENTED X4. UP AD EDWARD WITH 1:1 SITTER. NO MENTION OF SUICIDAL IDEATIONS LAST NIGHT. RESTING QUIETLY ON HOURLY ROUNDS. USING PO TORADOL TO HELP WITH GENERALIZED PAIN. ROOM PREP FOR SI PT. 1:1 SITTER WITH PATIENT AT ALL TIMES.
[2018-08-15 08:40] VITALS: BP 94/58
--- NOTE | 2018-08-15 10:39 | NUR ---
PT IS VERY FLAT AND TEARFUL. rOOM IS SCRUBBED OF ALL PERSONAL BELONGINGS. HAD TO REMOVE BLANKET, BOOK, AND PILLOW. 1:1 PRESENT FOR PT SAFETY. pT IS MOVING CUP TO MOUTH DIRECTLY WITH NO ISSUES. ABLE TO TAKE MEDICATION OUT OF CUP STRIAGHT TO MOUTH, NO DIVIATION, NO MISS GRABS. C/O BLURRIED VISION. DR ORDERED CT OF HEAD. PT ABLE TO WALK AND UP WITHOUT ANY ISSUES. STEADY. DENIES WANTING TO HURT SELF AT THIS TIME. DENIES HAVING A PLAN. BED IN LOWEST POSOTION. FALL PRECUATIONS IN PLACE WILL CONTINUE TO MONITOR.
--- NOTE | 2018-08-15 11:00 | NUR ---
LATE ENTRY FOR TUESDAY 08/14. CONTINUEING TO TRY TO FIND INPT.PSYCH PLACEMEMT FOR PT. RN SAID FAMILY SAID THEY CONTACTED [facility] AND THEY SAID THEY COULD ACCOMADATE PT. CM CONTACTED [facility] [phone]. SHE SAID THEY ARE AT CAPACITY AT THIS TIME. THEY ALSO DO NOT ACCEPT [place] PT.[place]. IN CONTINUEING TO LOOK FOR PLACEMENT ,LADY ALSO SPOKE WITH SEVERAL OTHER FACILITIES: [facility]-THEY DID NOT EXPECT ANY DISCHARGES ON WEDNESDAY. [facility]-NO BEDS WERE AVAILABLE THERE AND DID NOT EXPECT ANY AVAILABILITY [facility].-THEY ARE AT THEIR ACUITY [facility] IN [place], [place] SAID I COULD FAX PACKET AND THEY WOULD REVIEW. 1600:NURSING FAXED INFORMATION TO [facility] [phone] [place]. SPOKE WITH SUPERVISOR [facility] AND SHE SAID THEY NO LONGER HAVE BEDS. THEY HAD TO TAKE 2 PTS FROM THEIR ER.
--- NOTE | 2018-08-15 14:00 | NUR ---
FAXED UPDATED CLINICALS TO [facility], [facility],INTAKE AT [facility] IN [place], [place]. IF AFTER 0 THEY ARE TO NOTIFY [facility] IF THEY CAN ACCEPT PT. [facility] AND [facility] IN [place] SAID THEY DID NOT HAVE BED AVAILABILTY TODAY. [facility] SAID INFORMATION DID NOT SEEM PT.WAS CURRENTLY SUICIDAL,ACCORDING TO PROGRESS NOTE.
--- NOTE | 2018-08-15 17:01 | NUR ---
PT WAS CALLING OUT FOR DR TO VISIT AGAIN. SHE WANTED TO SEE IF SHE COULD HAVE PSYCH RE-EVALUATE. CONTACTED DR LONG. dR LONG RESTATED THAT HE WAS NOT GOING TO RE-EVALUATE PT WITH PSYCH UNLESS SHE WAS HERE FOR 4 ADDITIONAL DAYS AT LEAST. I COMMUNICATED THIS WITH PT AND SPOUSE. WE ARE CONTINUEING TO LOOK FOR PLACEMENT. SITTER REMAINS IN ROOM FOR SAFETY. PT HAS BEEN TRYING TO PUSH FOR THINGS SHE KNOWS ARE NOT ALLOWED UNDER THE CIRCUMSTANCES. CONTINUE TO SET BOUNDRIES. SITTER IS PRESENT PT IS STILL DENYING WANTING TO OR HAVING A PLAN TO HARM SELF.
[2018-08-15 21:00] VITALS: BP 101/60; BP 112/69
--- NOTE | 2018-08-16 07:26 | NUR ---
PATIENT HAS SLEPT WELL THROUGHOUT THE NIGHT. VSS ON RA. PAIN CONTROLLED WITH ORAL PAIN MEDICATION AND CHARTED. PATIENT REMAINS ON SI PRECAUTIONS AT THIS TIME. PATIENTS INFORMED THAT PATIENT IS UNABLE TO RECEIVE DRINKS, AND FOOD FROM OUTSIDE FACILITY THIS AM. PATIENTS AND PATIENT VERBALIZED BEING UPSET ABOUT THIS. NURSING ROLLING ATTENDANT NOTIFIED. SITTER IN ROOM DURING THE SHIFT WITH PATIENT. HOURLY ROUNDS MADE. WILL CONTINUE WITH PLAN OF CARE AND NURSING TO MONITOR.
[2018-08-16 07:30] VITALS: BP 112/70
[2018-08-16 16:00] VITALS: BP 122/78
--- NOTE | 2018-08-16 16:36 | NUR ---
DISCUSSED WITH , ALONG WITH ADELSO,DANIEL. PT.SAYS SHE IS NOT SUICIDAL BUT NEW AFFIDAVIT WAS FILLED OUT ON 08/13 EVENING REGARDING COMMENTS SHE MADE TO FRIEND ON PHONE. CM [facility] IN[facility] [place] AND [facility] IN [place]. IF AFTER 1630 ASKED THEM TO CALL [facility].RESTAURANT KITCHEN MANAGER,IF THEY CAN TAKE PT.
--- NOTE | 2018-08-16 18:30 | NUR ---
ALERT AND ORIENTED X4. UP AD EDWARD IN ROOM. NO IV. PAIN BEING MANAGED WITH SCHEDULED TORDOL. DENIES NAUSEA. SITTER AT BEDSIDE. TELEPSYCH WAS RECONSULTED TODAY, PLAN HAS NOT CHANGED FOR DISCHARGE, DID OKAY PATIENT TO HAVE ACCESS TO CELL PHONE AND TO BE ABLE TO HAVE PLASTIC CUTLERY. SUICIDE PRECAUTIONS ARE MAINTAINED THROUGHOUT SHIFT. VSS ON ROOM AIR. HOURLY ROUNDS HAVE BEEN MAINTAINED THROUGHOUT SHIFT. CALL LIGHT IS WITHIN REACH. NURSING WILL CONTINUE TO MONITOR.
[2018-08-16 21:00] VITALS: BP 117/69
[2018-08-17 10:12] VITALS: BP 107/67
--- NOTE | 2018-08-17 11:51 | NUR ---
CHILD CARE TEACHER FOLLOWED-UP ON REFERRALS SENT TO INPATIENT PSYCH PLACEMENT YESTERDAY. ALISON INFORMS THAT THE PHYSICIAN 'DECLINED DUE TO PATIENT NEEDING DRUG REHAB'. [facility] 'NO BEDS AVAILABLE TODAY'. [facility] 'NO BEDS AVAILABLE'. [facility] 'DENIED PATIENT DUE TO PATIENT BEING PAST THE POINT OF BEING ACUTE'. D/C JIG GRINDER SET UP OPERATOR INFORMED ALTAF THAT THE PATIENT HAD BEEN RE-EVALED BY TELE PSYCH AND THAT THEY ARE STILL RECOMMENDING INPATIENT PSYCH. ALTAF INFORMS THAT [facility] WILL ACCEPT THE NEW PSYCH EVAL AND PROGRESS NOTES TO REVIEW AND WILL RETURN CALL. D/C JIG GRINDER SET UP OPERATOR FAXED REQUESTED INFO TO ALTAF WITH [facility]. D/C JIG GRINDER SET UP OPERATOR ALSO SPOKE TO OCTAVIA WITH [facility] AND SHE INFORMS THAT 'THE FACILITY IS EXPECTING SOME DISCHARGES LATER TODA AND TO CALL LATER TO ASSESS BED AVAILABILITY. [facility] INFORMS THAT THE FACILITY 'WILL ACCEPT THE REFERRAL, BUT INFORM THAT THEY WILL ACCEPT PATIENT'S FROM THEIR E.R. PRIOR TO ACCEPTING OUTSIDE PATIENTS. SPOKE TO INTAKE WITH [facility] AND THEY INFORM THAT THE FACILITY DOES [place]EPT [place]. CM WILL REMAIN AVAILABLE TO ASSIST AND FOLLOW NEEDED.
--- NOTE | 2018-08-17 14:53 | NUR ---
Nutrition: Pt admitted with OD. Wt: 167#. Behavioral health tray. Facility now accepting pt, per CM notes. RX: MVI, B1 ordered. Pt was seen for LOS. No acute nutrition conerns at this time. Low nutrition risk.
--- NOTE | 2018-08-17 15:14 | NUR ---
HAND WINDER AWAITING RETURN CALL FROM [facility] TO DETERMINE ABILITY TO ACCEPT PATIENT TO INPATIENT PSYCH. SPOKE TO INTAKE WITH [facility] AND THEY INFORM THAT THE FACILITY MAY HAVE A BED AVAILABLE AFTER 1800. D/C ASSEMBLER PING PONG TABLE FAXED [facility] PATIENT'S FACESHEET, CLINCAL INFO, AND AFADAVITS. CM WILL REMAIN AVAILABLE TO ASSIST AND FOLLOW NEEDED.
--- NOTE | 2018-08-17 18:58 | NUR ---
SPOKE WITH [facility] PER HUSBANDS REQUEST. PER INTAKE PATIENT WAS DENIED AGAIN DUE TO LACK OF CURRENT AFFIDAVIT. NO ANSWER FROM [facility].
--- NOTE | 2018-08-17 19:05 | NUR ---
[facility]. THEY HAVE NOT BEEN ABLE TO LOOK AT REFERRAL YET.
--- NOTE | 2018-08-17 19:46 | NUR ---
PT ALERT AND ORIENTED X 4. NURSING STAFF 1:1 MONITOR. PT LYING IN BED USING HER CELL PHONE MOST OF THE DAY. RECEIVED PO MEDICATIONS FOR PAIN 04/10. UP AD EDWARD TO BR. DENIED NAUSEA. SUICIDE PRECAUTIONS MAINTAINED DURING SHIFT. WILL USE CALL LIGHT FOR ASSISTANCE. CALL LIGHT WITHIN REACH. NURSING TO CONTINUE TO MONITOR.
[2018-08-17 20:45] VITALS: BP 95/61
--- NOTE | 2018-08-18 04:33 | NUR ---
PATIENT HAS SLEPT THROUGHOUT THE NIGHT WITHOUT ANY ISSUES. VSS ON RA. PAIN WELL CONTROLLED. MEDICATIONS GIVEN ORDERED AND CHARTED. SITTER IN ROOM WITH PATIENT. PATIENT HAS BEEN APPROPRIATE AND SEEMS TO BE IN GOOD MOOD DURING THE SHIFT. HOURLY ROUNDS MADE. WILL CONTINUE WITH PLAN OF CARE AND NURSING TO MONITOR.
[2018-08-18 07:45] VITALS: BP 97/64
[2018-08-18] MEDS ORDERED: VENLAFAXINE HCL75 M1 PO (07:52)
[2018-08-18] MEDS ORDERED: PRENATAL PO (07:52)
[2018-08-18] MEDS ORDERED: EXCEDRIN CAPLE1 EACH PO (07:52)
[2018-08-18] MEDS ORDERED: NEURONTIN 300300 M1 PO (07:52)
--- NOTE | 2018-08-18 09:30 | NUR ---
UPDATED PT.REGARDING FINDING OF INPT.PSYCH. SHE WAS TEARFUL, STATING HOW LONG AM I GOING TO HAVE TO STAY HERE. EXPLAINED LIMITED PLACES TO SEND REFERRALS TO WITH HER INSURANCE. EXPLAINED WE HAVE TO START OVER EVERY DAY. THEY DO NOT HAVE A WAITING LIST. WE HAVE TO FIND PLACES WITH BED AVAILABILITY EACH DAY AND THEN ARE ABLE TO SEND THE REFERRAL. THEY HAVE TO REVIEW REFERRAL AND THEN SEND TO THEIR PHSYCIAN. SHE WAS REQUESTING ANOTHER TELE PSYCH EVAL. TOLD HER SHE JUST HAD ONE ON WEDNESDAY. CM WILL CONTINUE LOOKING FOR PLACEMENT.
--- NOTE | 2018-08-18 09:48 | NUR ---
MOTOR COACH CHAUFFEUR CONTINUES TO ATTEMPT TO FIND INPATIENT PSYCH PLACEMENT FOR PATIENT. PER NURSING NOTE [facility] IS 'REQUESTING NEW AFIDAVITS'. [facility] INFORMS THAT THE FACILTIY IS 'AT CAPACITY'. [facility] INFORMS THAT THERE ARE 'NO ADULT BEDS AVAILABLE'. SPOKE TO INTAKE WITH [facility] AND THEY INFORM THAT THERE ARE 'NO FEMALE BEDS CURRENTLY AVAILABLE, BUT FAX REFERRAL IN CASE ON BECOMES AVAILABLE LATER ON TODAY'. SPOKE TO INTAKE WITH [facility] AND THEY INFORM THAT THE FACILITY MAY HAVE DISCHARGES TODAY AND TO FAX REFERRAL. D/C DIRECTOR FOOD SAFETY FAXED REQUESTED REFERRALS TO [facility] AND [facility]. CM WILL REMAIN AVIALABLE TO ASSIST AND FOLLOW NEEDED.
[2018-08-18 15:15] VITALS: BP 91/53
--- NOTE | 2018-08-18 16:49 | NUR ---
CALLED [facility]. [facility] CALLED BACK. HE SAID THEY DO HAVE A FEMALE BED BUT HAS NOT BEEN ABLE TO REVIEW REFERRAL. HE WILL REVIEW AND CALL [facility] IF THEY CAN ACCEPT PT.TO INPT.PSYCH.
--- NOTE | 2018-08-18 18:36 | NUR ---
ALERT AND ORIENTED X4. UP AD EDWARD IN ROOM. SITTER AT BEDSIDE. SUICIDE PRECAUTIONS IN PLACE. CELL PHONE AND PLASTIC SPOON ALLOWED. NO IV AT THIS TIME. PAIN BEING MANAGED WITH PO PAIN MEDICATION. DENIES NAUSEA. VSS ON ROOM. AIR. HOURLY ROUNDS HAVE BEEN MAINTAINED THROUGHOUT SHIFT. CALL LIGHT IS WITHIN REACH. NURSING WILL CONTINUE TO MONITOR.
[2018-08-18 19:21] VITALS: BP 91/53
[2018-08-18 19:22] VITALS: BP 91/53
[2018-08-18 20:15] VITALS: BP 101/64
--- NOTE | 2018-08-19 06:53 | NUR ---
PATIENT ALERT AND ORIENTED X 4. VITALS STABLE. RA. CONTINUED 1:1 SITTER. UP INDEPENDENTLY. FRUSTRATED ABOUT NOT BEING PLACED. OTHERWISE PLEASANT AND COOPERATIVE DURING MY SHIFT. SLEPT COMFORTABLY THROUGH THE RUST. HOURLY ROUNDS. NURSING WILL CONTINUE TO MONITOR.
--- NOTE | 2018-08-19 08:23 | NUR ---
0715 Pt cont on SI precautions, this nurse assumed postion as sitter at 0715 d/t another sitter not available at the time. Pt in bed restig with eyes closed. Pt awoke at 0735, when asked how she was feeling she replied "I am okay,". Employment Evaluator/Case Manager here at 0745 and took over sitting with patient.
[2018-08-19 08:30] VITALS: BP 109/73
[2018-08-19 08:35] VITALS: BP 109/73
[2018-08-19 08:59] VITALS: BP 109/73
--- NOTE | 2018-08-19 10:59 | NUR ---
SOFTWARE RELIABILITY ENGINEER ATTEMPTIN TO FIND INPATIENT PSYCH PLACEMENT FOR THE PATIENT. [facility]--NO BEDS AVAILABLE. [facility]--NO BEDS AVAILABLE. [facility]NO BEDS AVAILABLE. [facility]--NO BEDS AVAILABLE, BUT ALLOWED D/C PER DIEM REGISTERED NURSE TO SEND REFERRAL TO FAX REFERRAL IN CASE A BED BECAME AVAILABLE. [facility] RETURNED CALL TO INFORM THAT THEY ARWE UNABLE TO ACCEPT THE PATIENT. ALISON INTAKE INFORMS THAT THE FACILITY IS 'UNABLE TO RE-REVIEW THE REFERRAL AT THIS TIME AND ARE UNABLE TO ACCEPT NEW PATIENTS THERE WILL BE NO PSYCHIATRIST AVAILABLE 11AM TODAY THRU NOON WEDNESDAY'. SPOKE TO OCTAVIA WITH [facility] AND SHE INFORMS THAT THE FACILTY DOES HAVE BED AVIALABILTY, BUT ARE REQUESTING THAT A NEW REFERRAL BE SENT. D/C PER DIEM REGISTERED NURSE SENT A NEW REFERRAL TO [facility]. CM WILL REMAIN AVAILABLE TO ASSIST AND FOLLOW NEEDED.
--- NOTE | 2018-08-19 17:31 | NUR ---
CM SPOKE WITH PT.IN ROOM REGARDING QUESTIONS PT.HAD ABOUT WHEN PSYCH BED WOULD BE FOUND, HOW LONG SHE WOULD HAVE TO STAY AT A PSYCH FACILITY ETC. SHE LOOKED SAD BUT UNDERSTOOD LACK OF BED AVAILABILITY AND LIMITED PLACES THAT ACCEPT HER INSURANCE.
--- NOTE | 2018-08-19 17:44 | NUR ---
3813 This nurse informed that placement had been found for pt at [facility]. Report called to Terri at [facility] phone# [phone] @ [phone], informed pt of transfer this evening which she was please with. Arranging transportation at this time, pt cont to have 1:1 sitter present.
[2018-08-19] MEDS ORDERED: AMITRIPTYLINE100 MG PO (18:29)
--- NOTE | 2018-08-19 18:56 | NUR ---
EMS non emergent transfer arrived at 1735 to transport pt to [facility] to [facility] Room 110A, pt transported via stretcher, X2 assist, pt had cell phone with her and was informed, Paperwork given to EMS and report was called to Terri at [facility].
== END 2018-08-19 17:45 | DRG 917 ==
LOC: M.ERS 18:54 → M.ICU 20:02 → M.TBA-ER 20:02 → M.ICU 21:24 → M.ORTHSURG 08-11 13:19
PROVIDERS: Emergency Medicine; ADMIT Internal Medicine
PROC: 0BH17EZ Insertion of Endotracheal Airway into Trachea, Via Natural or Artificial Opening (ICD-10-PCS; principal; 2018-08-09)
PROC: 5A1935Z Respiratory Ventilation, Less than 24 Consecutive Hours (ICD-10-PCS; principal; 2018-08-09)
DX: T40.2X2A Poisoning by other opioids, intentional self-harm, initial encounter (principal); J96.90 Respiratory failure, unspecified, unspecified whether with hypoxia or hypercapnia; F17.210 Nicotine dependence, cigarettes, uncomplicated; F32.9 Major depressive disorder, single episode, unspecified; F41.9 Anxiety disorder, unspecified; G47.00 Insomnia, unspecified; G43.909 Migraine, unspecified, not intractable, without status migrainosus; Y92.89 Other specified places as the place of occurrence of the external cause; Z88.8 Allergy status to other drugs, medicaments and biological substances; Z88.6 Allergy status to analgesic agent; Z91.041 Radiographic dye allergy status; Z85.41 Personal history of malignant neoplasm of cervix uteri; Z28.21 Immunization not carried out because of patient refusal; Z83.3 Family history of diabetes mellitus; Z82.49 Family history of ischemic heart disease and other diseases of the circulatory system; Z79.899 Other long term (current) drug therapy

== ENCOUNTER 2018-10-26 16:28 | Emergency (ER) | payer MEDICAID ==
[~2018-10-26] VITALS: Ht 170.2 cm; Wt 74.8 kg
[~2018-10-26 16:28] MED LIST changes: +ELIQUIS2.5 MG PO; +EXCEDRIN CAPLE1 EACH PO; +IMITREX 50 MG T50 MG PO; +NEURONTIN 300300 M1 PO; +PRENATAL PO; +VALACYCLOVIR1000 MG PO; +VENLAFAXINE HCL75 M1 PO; +XANAX 0.5 MG0.5 MG PO
[2018-10-26 18:26] LABS: ABSOLUTE BASOPHILS 0.1 thou/uL (0.0-0.2); ABSOLUTE EOSINOPHILS 0.2 thou/uL (0.0-0.7); ABSOLUTE LYMPHOCYTES 1.7 thou/uL (0.8-5.3); ABSOLUTE MONOCYTES 0.7 thou/uL (0.0-1.2); BASOPHILS 0.6 %; EOSINOPHILS 2.3 %; HEMATOCRIT 35.2 % (37.0-47.0); HEMOGLOBIN 11.5 gm/dL (12.0-15.0); LYMPHOCYTES 19.1 %; MCH 29.9 pg (26.0-34.0); MCHC 32.6 g/dL (28.0-37.0); MCV 91.6 fL (80.0-100.0); MONOCYTES 8.2 %; MPV 8.1 fl. (7.2-11.1); NUCLEATED RBCS 0 /100WBC; PLATELET COUNT* 284 thou/uL (150-400); POLYS 69.8 %; RBC 3.84 mil/uL (4.20-5.00); RDW-CV 14.8 % (10.5-14.5); WBC 8.6 thou/uL (4.0-11.0)
[2018-10-26 18:34] LABS: CREATININE 0.8 mg/dL (0.6-1.3); POTASSIUM 3.5 mmol/L (3.5-5.1)
[2018-10-26 18:46] LABS: ALBUMIN 2.9 g/dL (3.4-5.0); TOTAL BILIRUBIN 0.1 mg/dL (<0.1-1.0); TOTAL PROTEIN 6.7 g/dL (6.4-8.2)
[2018-10-26 19:07] LABS: URINE BILIRUBIN NEGATIVE (Negative); URINE BLOOD 2+ (Negative); URINE CLARITY CLEAR; URINE COLOR YELLOW; URINE GLUCOSE-RANDOM NEGATIVE (Negative); URINE KETONES NEGATIVE (Negative); URINE LEUKOCYTES-REFLEX 1+ (Negative); URINE NITRITE-REFLEX NEGATIVE (Negative); URINE PROTEIN NEGATIVE (Negative); URINE UROBILINOGEN 0.2 E.U./dl (0.2-1.0)
[2018-10-26 19:20] LABS: BACTERIA-REFLEX None Seen /HPF (None Seen); CASTS None Seen /LPF (None Seen); CRYSTALS None Seen /LPF (None Seen); SQUAMOUS NONE SEEN /LPF (0-3); URINE RBC None Seen /HPF (0-2); URINE WBC-REFLEX None Seen /HPF (0-5)
[2018-10-26] MEDS ORDERED: KLOR-CON 1010 MEQ PO (20:29)
[2018-10-26] MEDS ORDERED: LASIX 40 MG TAB40 M2 PO (20:29)
[2018-10-26 20:37] VITALS: BP 110/72
== END 2018-10-26 20:38 | disposition home or self-care (01) ==
LOC: M.ERS 16:28
PROVIDERS: Nurse Practitioner Family
DX: R60.0 Localized edema (principal); F32.9 Major depressive disorder, single episode, unspecified; F41.9 Anxiety disorder, unspecified; G43.909 Migraine, unspecified, not intractable, without status migrainosus; F17.210 Nicotine dependence, cigarettes, uncomplicated; Z85.41 Personal history of malignant neoplasm of cervix uteri; Z91.041 Radiographic dye allergy status; Z88.5 Allergy status to narcotic agent; Z88.8 Allergy status to other drugs, medicaments and biological substances

== ENCOUNTER 2021-01-02 13:07 | Emergency (ER) | payer OTHER, MEDICAID ==
[~2021-01-02] VITALS: Ht 170.2 cm; Wt 67.6 kg
[~2021-01-02 13:07] MED LIST changes: +KLOR-CON 1010 MEQ PO; +LASIX 40 MG TAB40 M2 PO
[2021-01-02 13:31] LABS: URINE BILIRUBIN NEGATIVE (Negative); URINE BLOOD NEGATIVE (Negative); URINE CLARITY CLEAR; URINE COLOR YELLOW; URINE GLUCOSE-RANDOM NEGATIVE (Negative); URINE KETONES NEGATIVE (Negative); URINE LEUKOCYTES-REFLEX NEGATIVE (Negative); URINE NITRITE-REFLEX NEGATIVE (Negative); URINE PROTEIN NEGATIVE (Negative); URINE UROBILINOGEN 0.2 E.U./dl (0.2-1.0)
[2021-01-02] MEDS ORDERED: LYRICA25 MG PO (13:31)
[2021-01-02 14:14] LABS: ABSOLUTE BASOPHILS 0.1 thou/uL (0.0-0.2); ABSOLUTE EOSINOPHILS 0.1 thou/uL (0.0-0.7); ABSOLUTE LYMPHOCYTES 2.4 thou/uL (0.8-5.3); ABSOLUTE MONOCYTES 0.4 thou/uL (0.0-1.2); ABSOLUTE NEUTROPHILS 3.9 thou/uL (1.6-8.1); BASOPHILS 0.9 %; EOSINOPHILS 1.9 %; HEMATOCRIT 42.7 % (37.0-47.0); HEMOGLOBIN 13.8 gm/dL (12.0-15.0); LYMPHOCYTES 34.3 %; MCH 28.2 pg (26.0-34.0); MCHC 32.4 g/dL (28.0-37.0); MCV 86.8 fL (80.0-100.0); MONOCYTES 6.5 %; MPV 8.1 fl. (7.2-11.1); NUCLEATED RBCS 0 /100WBC; PLATELET COUNT* 338 thou/uL (150-400); POLYS 56.4 %; RBC 4.92 mil/uL (4.20-5.00); RDW-CV 15.6 % (10.5-14.5); WBC 6.9 thou/uL (4.0-11.0)
[2021-01-02 14:34] LABS: CALCIUM 10.1 mg/dL (8.5-10.1); CREATININE 0.9 mg/dL (0.6-1.3); POTASSIUM 3.6 mmol/L (3.5-5.1)
[2021-01-02 14:38] LABS: ALBUMIN 3.9 g/dL (3.4-5.0); TOTAL BILIRUBIN 0.2 mg/dL (<0.1-1.0); TOTAL PROTEIN 8.2 g/dL (6.4-8.2)
[2021-01-02] MEDS ORDERED: NORCO5 PO (15:10)
[2021-01-02] MEDS ORDERED: FLAGYL500 M1 PO (15:10)
[2021-01-02] MEDS ORDERED: CIPRO500 M1 PO (15:10)
[2021-01-02] MEDS ORDERED: ONDANSETRON HCL4 M2 PO (15:57)
[2021-01-02 16:01] VITALS: BP 124/82
== END 2021-01-02 16:02 | disposition home or self-care (01) ==
LOC: M.ERS 13:07
PROVIDERS: Physician Assistant
DX: R10.33 Periumbilical pain (principal); R10.32 Left lower quadrant pain; R19.7 Diarrhea, unspecified; R11.2 Nausea with vomiting, unspecified; F32.9 Major depressive disorder, single episode, unspecified; F41.9 Anxiety disorder, unspecified; G43.909 Migraine, unspecified, not intractable, without status migrainosus; F17.210 Nicotine dependence, cigarettes, uncomplicated; Z90.49 Acquired absence of other specified parts of digestive tract; Z85.828 Personal history of other malignant neoplasm of skin; Z79.82 Long term (current) use of aspirin; Z79.899 Other long term (current) drug therapy; Z91.041 Radiographic dye allergy status; Z88.6 Allergy status to analgesic agent; Z88.8 Allergy status to other drugs, medicaments and biological substances

== ENCOUNTER 2021-03-02 21:24 | Observation (INO) | payer OTHER, MEDICAID ==
[~2021-03-02] VITALS: Ht 170.2 cm; Wt 70.3 kg
[~2021-03-02 21:24] MED LIST changes: +CIPRO500 M1 PO; +FLAGYL500 M1 PO; +LYRICA25 MG PO; +NORCO5 PO
[2021-03-02 21:29] VITALS: BP 103/69
[2021-03-02] MEDS ORDERED: CYMBALTA20 MG PO (21:36)
[2021-03-02 22:14] LABS: ABSOLUTE EOSINOPHILS 0.1 thou/uL (0.0-0.7); ABSOLUTE LYMPHOCYTES 2.5 thou/uL (0.8-5.3); ABSOLUTE MONOCYTES 0.5 thou/uL (0.0-1.2); ABSOLUTE NEUTROPHILS 3.2 thou/uL (1.6-8.1); BASOPHILS 0.3 %; EOSINOPHILS 2.2 %; HEMATOCRIT 40.5 % (37.0-47.0); HEMOGLOBIN 13.2 gm/dL (12.0-15.0); LYMPHOCYTES 39.3 %; MCH 28.6 pg (26.0-34.0); MCHC 32.7 g/dL (28.0-37.0); MCV 87.4 fL (80.0-100.0); MONOCYTES 7.5 %; MPV 8.2 fl. (7.2-11.1); NUCLEATED RBCS 0 /100WBC; PLATELET COUNT* 293 thou/uL (150-400); POLYS 50.7 %; RBC 4.63 mil/uL (4.20-5.00); RDW-CV 15.1 % (10.5-14.5); WBC 6.4 thou/uL (4.0-11.0)
[2021-03-02 22:25] LABS: APTT 24.2 Seconds (25.0-31.3); PROTIME 10.8 Seconds (9.20-11.50)
[2021-03-02 22:31] LABS: CALCIUM 9.6 mg/dL (8.5-10.1); CREATININE 0.9 mg/dL (0.6-1.3); POTASSIUM 3.3 mmol/L (3.5-5.1)
[2021-03-02 22:42] LABS: ALBUMIN 3.9 g/dL (3.4-5.0); TOTAL BILIRUBIN 0.3 mg/dL (<0.1-1.0); TOTAL PROTEIN 7.8 g/dL (6.4-8.2)
[2021-03-03 00:40] LABS: PCO2 28.6 mmHg (35.0-45.0); pH 7.457 (7.340-7.450)
[2021-03-03 00:41] LABS: BE -2.9 mmol/L (-2 to +3); PO2 98.7 mmHg (75.0-100.0)
[2021-03-03 05:41] VITALS: BP 95/63
[2021-03-03 08:40] VITALS: BP 80/44
--- NOTE | 2021-03-03 09:53 | EKG ---
[place] [address] ELECTROCARDIOGRAM REPORT Name: ALTAF VILLA Room: [address]#: [id number] Admission: 03/03/21 Attend Phys: Juan Miguel Adams, Discharge: Date of : 79 Date of Service: 03/02/212129 Report #: [id number] THIS REPORT FOR: //name// [facility] ED Test Date: 2021-03-02 Test Time: 21:30:32 Pat Name: ALTAF VILLA Department: Room: [facility] Gender: F Air Support Operations Operator: TIMO : 1975 Requested By: Lolly Forman Order Number: [id number] MD: Nicko Castillo Measurements Intervals [place] Rate: 90 P: 35 WI: 130 QRS: 54 QRSD: 82 T: 56 QT: 355 QTc: 435 Interpretive Statements Sinus rhythm Compared to ECG 08/11/2018 20:41:09 Sinus tachycardia no longer present Electronically Signed On 03-03-2021 9:53:10 CDT by Nicko Castillo [email or web address] <ELECTRONICALLY SIGNED> By: Nicko Castillo MD, [facility] 03/03/21 0953 29 29 Nicko Castillo MD, [facility] /EPI
[2021-03-03 11:00] VITALS: BP 87/57
[2021-03-03 16:00] VITALS: BP 88/56
[2021-03-03 17:05] VITALS: BP 167/104
[2021-03-03 19:45] VITALS: BP 89/59
[2021-03-04] VITALS (9 sets, daily range): BP systolic 86–135; BP diastolic 53–85
[2021-03-04 05:31] LABS: CHOLESTEROL 165 mg/dL (<200); HDL CHOLESTEROL 38 mg/dL (>40); LDL CHOLESTEROL 94 mg/dL (<100); TC:HDL 4.3 Ratio (Not establshd); TRIGLYCERIDE 169 mg/dL (<150); VLDL 34 mg/dL (<40)
[2021-03-04 05:35] LABS: SERUM ASSESSMENT Clear
--- NOTE | 2021-03-04 17:24 | CON ---
[address] [address] CONSULTATION Name: ALTAF VILLA Room: [address] ShyamRVonnie#: [id number] Admission: 03/03/21 Attend Phys: Juan Miguel Adams MD Discharge: Date of : 79 Report #: [id number] THIS REPORT FOR: cc: [place] - No family physician/PCP FAM - No family physician/PCP Nicko Castillo MD [facility] ~ DOC #: [id number] Nicko Castillo MD [facility] DATE OF CONSULTATION: 03/03/2021 HISTORY OF PRESENT ILLNESS: The patient is a 45-year-old white female who I was asked to see in the hospital today after she complained of palpitations. The patient notes for the past year, she has had intermittent palpitations. She has actually had fainting spells. She actually passed out five days ago, although she did not hurt herself. There is no seizure activity. She has been followed by Dr. Kay at [place] because of the palpitations. She apparently had a stress test at [facility] within the past year. She saw Dr. Kay 3 days ago and he placed an external cardiac tech for the patient to wear. She was doing well until yesterday, she was at home. She felt a tightness in her chest that lasted several hours. She also felt her heart beating is fast. Her brought her to the emergency room last night. She was admitted for further evaluation and treatment. The patient denied the pain radiating to her jaw or arms. She has a history of low blood pressure and has felt lightheaded. She denied any vomiting, diarrhea or bleeding. She denies a history of heart murmur. She apparently had a stress test at [facility] within the past year. PAST MEDICAL HISTORY: She had head and neck cancer, requiring radiation therapy and surgery. She had a feeding tube at one time. She had hemicolectomy for colon polyp. PAST SURGICAL HISTORY: She has had cholecystectomy, knee surgery, hysterectomy. CURRENT MEDICATIONS: Synthroid, pain medication. ALLERGIES: SHE HAS AN ALLERGY TO COMPAZINE. FAMILY HISTORY: Mom had heart disease. SOCIAL HISTORY: She is . 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 She quit smoking 2 years ago. No alcohol abuse. No illicit drug use. REVIEW OF SYSTEMS: She has a history of asthma, uses inhaler. No history of stroke, liver disease. She has had kidney stones. She has a history of intermittent rash on her legs. She has been referred to [place] [address] CONSULTATION Name: ALTAF VILLA Room: [address] Rojelio#: [id number] Admission: 03/03/21 Attend Phys: Juan Miguel Adams MD Discharge: Date of : 79 Report #: [id number] psychiatric illness. PHYSICAL EXAMINATION: GENERAL: Revealed a middle-aged female, appeared in no distress. VITAL SIGNS: She had a blood pressure of 110/70, pulse 70. She is afebrile. HEENT: She was anicteric. Conjunctivae pink. Mucosa is moist. NECK: Veins are not distended. No carotid bruits. CHEST: Clear to auscultation. HEART: Regular rate and rhythm. ABDOMEN: Soft. EXTREMITIES: No edema. Posterior tibial pulse 2+ bilaterally. SKIN: Cool and dry. IMAGING: ECG shows a sinus rhythm with no ST or T-wave change. Workup, she actually had an echocardiogram done here at [facility] in 2015 that showed an ejection fraction of 60% with no significant valvular abnormalities. Her workup in the emergency room last night, she had a portable chest x-ray that showed normal heart size, clear lung robb. LABORATORY DATA: Her sodium is 140, creatinine is 0.9. Troponins were all less than 0.06. TSH 9.1, white blood cell count 6.4, hemoglobin 13.2. IMPRESSION AND RECOMMENDATIONS: 1. Palpitations. No arrhythmia noted since the patient was admitted. Currently, has a cardiac tech. I would discharge the patient to have her follow up with Dr. Kay. 2. Chest pain. I would get the results of stress test done at [facility] within the past year. 3. History of syncopal spells. Suspect vasovagal. I would avoid dehydration. 4. History of head and neck cancer, treated with surgery and radiation therapy. 5. Previous tobacco abuse. 6. Chronic pain. The patient has been seen in the pain clinic in the past. Nicko Castillo MD [facility] JENNIFER/WILLY <ELECTRONICALLY SIGNED> By: Nicko Castillo MD, [facility] 03/04/21 1724 [id number] Castillo MD, [facility] /nt
== END 2021-03-04 17:45 | disposition home or self-care (01) ==
LOC: M.ERS 21:24 → M.2W 03-03 01:54 → M.TBA-ER 03-03 01:54 → M.2W 03-03 11:22
PROVIDERS: Family Medicine; Personal Emergency Response Attendant; ADMIT Internal Medicine; ATTEND Internal Medicine
DX: R07.89 Other chest pain (principal); Z20.822 Contact with and (suspected) exposure to COVID-19; E03.9 Hypothyroidism, unspecified; I47.1 Supraventricular tachycardia; R42 Dizziness and giddiness; F32.9 Major depressive disorder, single episode, unspecified; F41.9 Anxiety disorder, unspecified; G40.909 Epilepsy, unspecified, not intractable, without status epilepticus; G47.00 Insomnia, unspecified; F17.210 Nicotine dependence, cigarettes, uncomplicated; Z98.890 Other specified postprocedural states; Z90.49 Acquired absence of other specified parts of digestive tract; Z90.710 Acquired absence of both cervix and uterus

== ENCOUNTER 2021-09-30 13:19 | Emergency (ER) | payer OTHER, MEDICAID ==
[~2021-09-30] VITALS: Ht 170.2 cm; Wt 68.0 kg
[~2021-09-30 13:19] MED LIST changes: +CYMBALTA20 MG PO
[2021-09-30] MEDS ORDERED: LEVO-T25 MCG PO (13:35)
[2021-09-30] MEDS ORDERED: HYDROCODON-ACE1 EAC7 PO (15:13)
[2021-09-30] MEDS ORDERED: PREDNISONE50 MG PO (15:13)
[2021-09-30] MEDS ORDERED: FLEXERIL PO (15:13)
[2021-09-30 15:21] VITALS: BP 110/54
== END 2021-09-30 15:21 | disposition home or self-care (01) ==
LOC: M.ERS 13:19
DX: M54.50 Low back pain, unspecified (principal); M54.31 Sciatica, right side; F17.210 Nicotine dependence, cigarettes, uncomplicated; Z90.710 Acquired absence of both cervix and uterus; Z90.49 Acquired absence of other specified parts of digestive tract; Z79.899 Other long term (current) drug therapy; Z88.8 Allergy status to other drugs, medicaments and biological substances